=== PATIENT | female | born 1940 | race Caucasian/White ===

== ENCOUNTER 2020-06-12 13:31 | Inpatient (IN) | payer MEDICARE ==
[2020-06-12] MEDS ORDERED: SODIUM CHLORIDE 0.9% 1,000 ML IV ONE (13:58)
[2020-06-12] MEDS: SODIUM CHLORIDE 0.9% 1,000 ML IV SCH ×2 (14:13→22:07)
[2020-06-12 14:22] LABS: Basophils # (A) 0.1 k/uL (0-0.2); Basophils % (A) 1 %; Eosinophils # (A) 0.7 k/uL (0-0.7); Eosinophils % (A) 7 %; HCT 36.5 % (34.0-46.0); HGB 12.1 gm/dL (11.4-16.0); Lymphocytes # (A) 2.6 k/uL (1.0-4.8); Lymphocytes % (A) 30 %; MCH 31.2 pg (25.0-35.0); MCHC 33.2 g/dL (31.0-37.0); MCV 94.1 fL (80.0-100.0); Mean Platelet Volume 7.2; Monocytes # (A) 0.6 k/uL (0-1.0); Monocytes % (A) 6 %; Neutrophils # (A) 4.7 k/uL (1.3-7.7); Neutrophils % (A) 54 %; Platelet Count 311 k/uL (150-450); RBC 3.88 m/uL (3.80-5.40); WBC 8.8 k/uL (3.8-10.6)
[2020-06-12 14:32] LABS: Albumin 4.2 g/dL (3.5-5.0); Calcium 9.7 mg/dL (8.4-10.2); Potassium 4.2 mmol/L (3.5-5.1); Total Bilirubin 0.5 mg/dL (0.2-1.3); Total Protein 6.6 g/dL (6.3-8.2)
[2020-06-12 14:34] LABS: Partial Thromboplastin Time 23.1 sec (22.0-30.0); Prothrombin Time 10.6 sec (9.0-12.0)
--- NOTE | 2020-06-12 14:41 | ED ---
ENT HPI - General Chief complaint: ENT Stated complaint: ENT Time Seen by Provider: 06/12/20 13:37 Source: patient, EMS, RN notes reviewed Mode of arrival: EMS Limitations: no limitations - History of Present Illness Initial comments: This a 80-year-old female presented emergency Department chief complaint of neck mass. Patient was seen by Dr. Jean Baptiste yesterday had biopsy, in office scope. Patient found to have neck mass and was sent in for further evaluation. Patient states that she's been having difficulty swallowing eating and talking over the last 1 month she was a former smoker. Denies any shortness of breath. Patient states she feels dehydrated. Patient denies any history of cancer no headache no dizziness no chest pain patient states she's lost a large amount of weight. - Related Data Allergies Allergy/AdvReac Type Severity Reaction Status Date / Time morphine Allergy Unknown Verified 06/12/20 13:33 Review of Systems ROS Statement: Those systems with pertinent positive or pertinent negative responses have been documented in the HPI. ROS Other: All systems not noted in ROS Statement are negative. Past Medical History Past Medical History: Hypertension History of Any Multi-Drug Resistant Organisms: None Reported Past Surgical History: Ablation, Hysterectomy Past Psychological History: Anxiety Smoking Status: Former smoker Past Alcohol Use History: None Reported Past Drug Use History: None Reported General Exam Limitations: no limitations General appearance: alert, in no apparent distress Head exam: Present: atraumatic, normocephalic, normal inspection Eye exam: Present: normal appearance, PERRL, EOMI. Absent: scleral icterus, conjunctival injection, periorbital swelling ENT exam: Present: mucous membranes dry. Absent: normal oropharynx Neck exam: Present: full ROM, lymphadenopathy (Left). Absent: normal inspection, tenderness, meningismus Respiratory exam: Present: normal lung sounds bilaterally. Absent: respiratory distress, wheezes, rales, rhonchi, stridor Cardiovascular Exam: Present: regular rate, normal rhythm, normal heart sounds. Absent: systolic murmur, diastolic murmur, rubs, gallop, clicks Neurological exam: Present: alert, oriented X3, CN II-XII intact Skin exam: Present: warm, dry, intact, normal color. Absent: rash Course Vital Signs 06/12/20 06/12/20 13:33 15:12 Temperature 98.2 F Pulse Rate 65 50 L Respiratory 18 18 Rate Blood Pressure 141/84 159/67 O2 Sat by Pulse 95 99 Oximetry Medical Decision Making - Medical Decision Making CT reviews evidence of tongue mass, multiple lymph nodes in bilateral throat mass. Patient is dehydrated, having difficulty eating and drinking. Patient will be admitted for further evaluation and treatment. - Lab Data Result diagrams: 06/12/20 14:09 06/12/20 14:09 Lab Results 06/12/20 06/12/20 06/12/20 Range/Units 14:09 14:09 14:09 WBC 8.8 (3.8-10.6) k/uL RBC 3.88 (3.80-5.40) m/uL Hgb 12.1 (11.4-16.0) gm/dL Hct 36.5 (34.0-46.0) % MCV 94.1 (80.0-100.0) fL MCH 31.2 (25.0-35.0) pg MCHC 33.2 (31.0-37.0) g/dL RDW 14.0 (11.5-15.5) % Plt Count 311 (150-450) k/uL MPV 7.2 Neutrophils % 54 % Lymphocytes % 30 % Monocytes % 6 % Eosinophils % 7 % Basophils % 1 % Neutrophils # 4.7 (1.3-7.7) k/uL Lymphocytes # 2.6 (1.0-4.8) k/uL Monocytes # 0.6 (0-1.0) k/uL Eosinophils # 0.7 (0-0.7) k/uL Basophils # 0.1 (0-0.2) k/uL PT 10.6 (9.0-12.0) sec INR 1.0 (<1.2) APTT 23.1 (22.0-30.0) sec Sodium 139 (137-145) mmol/L Potassium 4.2 (3.5-5.1) mmol/L Chloride 102 (98-107) mmol/L Carbon Dioxide 29 (22-30) mmol/L Anion Gap 8 mmol/L BUN 20 H (7-17) mg/dL Creatinine 1.19 H (0.52-1.04) mg/dL Est GFR (CKD-EPI)AfAm 50 (>60 ml/min/1.73 sqM) Est GFR (CKD-EPI)NonAf 44 (>60 ml/min/1.73 sqM) Glucose 111 H (74-99) mg/dL Plasma Lactic Acid Saran (0.7-2.0) mmol/L Calcium 9.7 (8.4-10.2) mg/dL Total Bilirubin 0.5 (0.2-1.3) mg/dL AST 47 H (14-36) U/L ALT 30 (4-34) U/L Alkaline Phosphatase 81 (38-126) U/L Total Protein 6.6 (6.3-8.2) g/dL Albumin 4.2 (3.5-5.0) g/dL 06/12/20 Range/Units 14:09 WBC (3.8-10.6) k/uL RBC (3.80-5.40) m/uL Hgb (11.4-16.0) gm/dL Hct (34.0-46.0) % MCV (80.0-100.0) fL MCH (25.0-35.0) pg MCHC (31.0-37.0) g/dL RDW (11.5-15.5) % Plt Count (150-450) k/uL MPV Neutrophils % % Lymphocytes % % Monocytes % % Eosinophils % % Basophils % % Neutrophils # (1.3-7.7) k/uL Lymphocytes # (1.0-4.8) k/uL Monocytes # (0-1.0) k/uL Eosinophils # (0-0.7) k/uL Basophils # (0-0.2) k/uL PT (9.0-12.0) sec INR (<1.2) APTT (22.0-30.0) sec Sodium (137-145) mmol/L Potassium (3.5-5.1) mmol/L Chloride (98-107) mmol/L Carbon Dioxide (22-30) mmol/L Anion Gap mmol/L BUN (7-17) mg/dL Creatinine (0.52-1.04) mg/dL Est GFR (CKD-EPI)AfAm (>60 ml/min/1.73 sqM) Est GFR (CKD-EPI)NonAf (>60 ml/min/1.73 sqM) Glucose (74-99) mg/dL Plasma Lactic Acid Saran 0.7 (0.7-2.0) mmol/L Calcium (8.4-10.2) mg/dL Total Bilirubin (0.2-1.3) mg/dL AST (14-36) U/L ALT (4-34) U/L Alkaline Phosphatase (38-126) U/L Total Protein (6.3-8.2) g/dL Albumin (3.5-5.0) g/dL Disposition Clinical Impression: Oral mass, Cervical lymphadenopathy, Throat mass, Difficulty eating Disposition: ADMITTED IP TO THIS HOSP Condition: Fair Referrals: David Tucker MD [Primary Care Provider] - 1-2 days
--- NOTE | 2020-06-12 15:09 | CT ---
EXAMINATION TYPE: CT soft tissue neck w con DATE OF EXAM: 06/12/2020 COMPARISON: None HISTORY: Difficulty swallowing. CT DLP: 180 mGycm CONTRAST: CT scan of the neck is performed with IV Contrast, patient injected with 50 mL of Isovue 370. Contrast enhanced CT of the neck was performed from the skull base through the lung apices. AIRWAY: There appears to be soft tissue mass at the base of the tongue on the right measuring 1.8 x 1 .8 cm. Neoplasm is not excluded. Clinical correlation is advised. The remainder of the airway is unre markable. Epiglottis is within normal limits. Vocal cords are within normal limits. SALIVARY GLANDS: The submandibular and parotid glands are free of mass or inflammatory process. THYROID GLAND: No nodules or masses seen. LYMPH NODES: There is a soft tissue mass noted lateral to the internal jugular vein on the left along the undersurface of the left sternocleidomastoid musculature which measures approximately 3.0 x 1.8 x 2.3 cm. This likely reflects adenopathy. Smaller lymph node is seen on the right measuring 1.8 x 1. 0 cm. LUNG APICES: No nodule or mass is seen. OTHER: Vascular structures are patent. No significant degenerative change of the cervical spine. N o abscess seen. IMPRESSION: 1. Probable adenopathy within the neck. 2. Soft tissue fullness at the base of the tongue on the right. Underlying malignancy is not excluded .
[2020-06-12] MEDS ORDERED: ONDANSETRON 4 MG/2 ML VIAL IVP PRN (16:05)
[2020-06-12] MEDS ORDERED: NALOXONE 0.4 MG/ML 1 ML VIAL IV PRN (16:05)
[2020-06-12] MEDS: lisinopriL 20 MG TAB PO SCH (21:51)
[2020-06-12] MEDS: busPIRone HCl 10 MG TAB PO PRN (21:51)
[2020-06-12] MEDS: OLANZapine 5 MG TAB PO SCH (21:52)
[2020-06-12] MEDS: traMADol 50 MG TAB PO PRN (21:52)
[2020-06-13] MEDS: traMADol 50 MG TAB PO PRN ×4 (04:53→22:00)
[2020-06-13] MEDS: SERTRALINE 50 MG TAB PO SCH (08:52)
[2020-06-13] MEDS: ATORVASTATIN 40 MG TAB PO SCH (08:52)
[2020-06-13] MEDS: MULTIVITAMINS, THERA 1 EACH TAB PO SCH (08:53)
[2020-06-13] MEDS: METOPROLOL SUCCINATE (ER) 50 MG TAB.ER.24H PO SCH (08:53)
[2020-06-13] MEDS: PANTOPRAZOLE 40 MG/10 ML VIAL IV SCH (08:53)
--- NOTE | 2020-06-13 13:20 | P.CONS ---
History of Present Illness - Reason for Consult Consult date: 06/13/20 Neck mass Requesting physician: David Tucker - Chief Complaint Neck mass - History of Present Illness Ms. Linder is a very pleasant 80 yo female with history of multiple comorbidities as listed under PMH, here for neck mass. She was being evaluated by ENT for dysphagia for the past month. Seen by ENT and base of tongue mass was seen, biopsied. She presented to ED due to worsening dysphagia and vomiting with PO intake. CT neck showed base of tongue 1.8x1.8cm mass on right as well as right cervical LAD, one measuring 3x1.8x2.3cm lateral to IJV and another one measuring 1.8x1cm. She does have a history of smoking. No SOB however due to her dysphagia she has lost weight over the past month. No alcohol or drug use. No known family history of cancer. Review of Systems All systems: negative Constitutional: Reports as per HPI Past Medical History Past Medical History: Hypertension Additional Past Medical History / Comment(s): Heart Ablation (10 years) History of Any Multi-Drug Resistant Organisms: None Reported Past Surgical History: Ablation, Hysterectomy Past Psychological History: Anxiety Smoking Status: Former smoker Past Alcohol Use History: None Reported Past Drug Use History: None Reported Medications and Allergies Home Medications Medication Instructions Recorded Confirmed Type Acetaminophen [Tylenol Arthritis] 1,300 mg PO Q8H 06/12/20 06/12/20 History Atorvastatin [Lipitor] 40 mg PO DAILY 06/12/20 06/12/20 History Metoprolol Succinate (ER) [Toprol 50 mg PO DAILY 06/12/20 06/12/20 History Xl] Multivit with Calcium,Iron,Min 1 tab PO DAILY 06/12/20 06/12/20 History [Women's Multivitamin] OLANZapine [ZyPREXA] 5 mg PO DAILY 06/12/20 06/12/20 History Sertraline [Zoloft] 50 mg PO DAILY 06/12/20 06/12/20 History busPIRone HCl [Buspar] 10 mg PO TID PRN 06/12/20 06/12/20 History traMADol HCL 50 mg PO QID PRN 06/12/20 06/12/20 History Allergies Allergy/AdvReac Type Severity Reaction Status Date / Time morphine Allergy Unknown Verified 06/12/20 16:01 Physical Exam Vitals: Vital Signs Temp Pulse Pulse Resp BP BP Pulse Ox 06/13/20 04:51 97.8 F 60 14 152/81 93 L 06/12/20 20:00 98.0 F 54 L 16 176/74 06/12/20 18:00 97.9 F 58 L 18 192/87 95 06/12/20 16:36 98.3 F 64 18 172/91 98 06/12/20 15:12 50 L 18 159/67 99 06/12/20 13:33 98.2 F 65 18 141/84 95 Intake and Output 06/12/20 06/13/20 06/13/20 22:59 06:59 14:59 Intake Total 236 Balance 236 Intake: Oral 236 Other: # Voids 3 Weight 50.802 kg Gen: No acute distress. HEENT: Mucosa moist Neck: Supple Lymph: Left [address] palpable, mobile and nontender. Lungs: No respiratory distress Heart: Regular rate Abd: Soft MSK: appropriate strength in all 4 extremities Neuro: Alert and oriented x3 Psych: Appropriate affect Results CBC & Chem 7: 06/12/20 14:09 06/12/20 14:09 Labs: Abnormal Lab Results - Last 24 Hours (Table) 06/12/20 Range/Units 14:09 BUN 20 H (7-17) mg/dL Creatinine 1.19 H (0.52-1.04) mg/dL Glucose 111 H (74-99) mg/dL AST 47 H (14-36) U/L Comments: CT neck reviewed. Right base of tongue mass and right cervical LAD. Assessment and Plan Assessment: 1. Base of tongue mass 2. Renal dysfunction, unknown if acute vs chronic as no baseline Plan: Ms. Linder is a very pleasant 80 yo female with multiple comorbidities as listed under PMH, who is here for neck mass from ENT clinic. She was being evaluated for dysphagia with associated weight loss over the past month and was found to have a right base of tongue mass with cervical LAD on CT. ENT exam with biopsy done, path pending. Will need to await pathology report. In the meantime, pt would benefit from swallow evaluation and possible tube feeding if fails swallow evaluation, hydration and monitoring her Cr. She seems to have some renal dysfunction however unknown baseline and unknown if this is MECCA vs CKD. Rest of labs normal. She would also benefit from systemic work up with CT CAP with contrast or PET scan outpatient (PET scan preferred if pt stable for discharge). Further rec's pending pathology. Discussed with pt and she is agreeable to the plan. All questions answered.
--- NOTE | 2020-06-13 13:53 | HP ---
HISTORY AND PHYSICAL CHIEF COMPLAINT: Difficulty swallowing. HISTORY OF PRESENT ILLNESS: This is the first known admission for this 80-year-old white female. She came into the office recently with some complaints of swelling in the left side of the neck. She had a lesion on the left side of the tongue. She was referred out for evaluation and just underwent a percutaneous biopsy of the left mass several days ago. She came into the emergency room because she was having difficulty eating, talking and swallowing. REVIEW OF SYSTEMS: She has had no headaches, focal neurologic deficits, chest pain, cough, hemoptysis, blood spitting, chest pain, orthopnea, PND, abdominal pain, melena, hematochezia, renal failure, dysuria, frequency, urgency, diabetes, high BP, etc. Past medical history, family history and personal and social histories reveal that she is allergic to MORPHINE and TRAZODONE. She has a history of hyperthyroidism and diabetes. Surgically she has had a hysterectomy, subtotal colectomy, splenectomy and a knee procedure. Personal social history is otherwise noncontributory. She does not smoke and she does not drink. Usual medications includeSertraline 50 mg once a day, lisinopril 20 mg once a day, buspirone 10 mg t.i.d. p.r.n., metoprolol succinate 50 mg once a day and olanzapine 5 mg once a day. PHYSICAL EXAMINATION: Blood pressure is 119/75 with a pulse of 80, respirations of 34 and she is afebrile. In general, she appeared to be slender, in no acute distress. Skin color was normal, skin was warm and dry. Lymph nodes were not enlarged. Head, ears, eyes, nose, mouth and throat revealed a mass on the left side of neck with a Band-Aid. Inside her mouth there was a lesion at the base of the left side of the tongue. She did have some trouble talking. Neck veins are not distended that could be appreciated. Chest is clear to auscultation and percussion. Cardiac exam is normal. The abdomen is soft and nontender. Extremities are normal. Neurologically she is intact. She is admitted to the hospital with diagnoses. 1. Dysarthria. 2. Dysphagia. 3. Left-sided neck mass. 4. 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 PLAN: 1. Bed rest. 2. IV fluids. 3. Oncology consult. 4. Await biopsy results. MMODL / IJN: [id number] /
--- NOTE | 2020-06-13 14:14 | PN ---
PROGRESS NOTE CHIEF COMPLAINT: Difficulty swallowing. HISTORY OF PRESENT ILLNESS: This lady is about the same. She is not having a lot of discomfort. She does have dysarthria. PHYSICAL EXAMINATION: There is swelling at the base of the tongue on the left and there is a hard nodular mass on the left side of the neck. Chest is clear. Cardiac exam is normal. IMPRESSION: 1. 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 2. Dysphagia. 3. Dysarthria. PLAN: Oncology evaluation and await the results of her biopsy. MMODL / IJN: [id number] /
[2020-06-13] MEDS: SODIUM CHLORIDE 0.9% 1,000 ML IV SCH ×2 (16:58→22:06)
[2020-06-13] MEDS: lisinopriL 20 MG TAB PO SCH (22:00)
[2020-06-13] MEDS: busPIRone HCl 10 MG TAB PO PRN (22:00)
[2020-06-13] MEDS: OLANZapine 5 MG TAB PO SCH (22:00)
[2020-06-13] MEDS: ACETAMINOPHEN TAB 325 MG TAB PO PRN (23:40)
[2020-06-14] MEDS: traMADol 50 MG TAB PO PRN ×3 (06:16→21:59)
[2020-06-14] MEDS: SERTRALINE 50 MG TAB PO SCH (08:04)
[2020-06-14] MEDS: PANTOPRAZOLE 40 MG/10 ML VIAL IV SCH (08:04)
[2020-06-14] MEDS: MULTIVITAMINS, THERA 1 EACH TAB PO SCH (08:04)
[2020-06-14] MEDS: ATORVASTATIN 40 MG TAB PO SCH (08:04)
[2020-06-14] MEDS: METOPROLOL SUCCINATE (ER) 50 MG TAB.ER.24H PO SCH (08:04)
[2020-06-14] MEDS: SODIUM CHLORIDE 0.9% 1,000 ML IV SCH ×2 (19:36→22:06)
--- NOTE | 2020-06-14 20:35 | PN ---
PROGRESS NOTE CHIEF COMPLAINT: Dysphagia, CA of the tongue with metastases. HISTORY OF PRESENT ILLNESS: This lady is awake and alert. She can not swallow at all. It looks as though she will require a PEG tube. Biopsy report on the node in the left side of the neck is still pending. PHYSICAL EXAMINATION: She has bilateral cervical adenopathy at this time. She is still having some trouble speaking. Chest is clear. Cardiac exam is normal. Abdomen is soft, nontender. IMPRESSION: 1. 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 2. Dysphagia. PLAN: 1. Await further recommendations once the pathology report is in. 2. PEG tube. 3. Discharge planning. MMODL / IJN: [id number] /
[2020-06-14] MEDS: lisinopriL 20 MG TAB PO SCH (21:59)
[2020-06-14] MEDS: traZODone HCL 50 MG TAB PO SCH (21:59)
[2020-06-14] MEDS: OLANZapine 5 MG TAB PO SCH (22:00)
[2020-06-15] MEDS: ACETAMINOPHEN TAB 325 MG TAB PO PRN ×2 (02:45→15:46)
[2020-06-15] MEDS: busPIRone HCl 10 MG TAB PO PRN (02:45)
[2020-06-15] MEDS: PANTOPRAZOLE 40 MG/10 ML VIAL IV SCH (08:54)
[2020-06-15] MEDS: traMADol 50 MG TAB PO PRN ×2 (08:54→18:12)
[2020-06-15] MEDS: ATORVASTATIN 40 MG TAB PO SCH (08:55)
[2020-06-15] MEDS: MULTIVITAMINS, THERA 1 EACH TAB PO SCH (08:55)
[2020-06-15] MEDS: METOPROLOL SUCCINATE (ER) 50 MG TAB.ER.24H PO SCH (08:55)
[2020-06-15] MEDS: SERTRALINE 50 MG TAB PO SCH (08:55)
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
[2020-06-15 10:26] LABS: Basophils # (A) 0.1 k/uL (0-0.2); Basophils % (A) 1 %; Eosinophils # (A) 0.6 k/uL (0-0.7); Eosinophils % (A) 7 %; HCT 34.2 % (34.0-46.0); HGB 11.5 gm/dL (11.4-16.0); Lymphocytes % (A) 24 %; MCH 31.6 pg (25.0-35.0); MCHC 33.5 g/dL (31.0-37.0); MCV 94.3 fL (80.0-100.0); Mean Platelet Volume 7.5; Monocytes # (A) 0.7 k/uL (0-1.0); Monocytes % (A) 9 %; Neutrophils # (A) 4.7 k/uL (1.3-7.7); Neutrophils % (A) 57 %; Platelet Count 288 k/uL (150-450); RBC 3.63 m/uL (3.80-5.40); RDW 13.9 % (11.5-15.5); WBC 8.2 k/uL (3.8-10.6)
[2020-06-15 10:43] LABS: ALT 21 U/L (4-34); AST 33 U/L (14-36); African American GFR (CKD) 69 (>60 ml/min/1.73 sqM); Albumin 3.4 g/dL (3.5-5.0); Albumin/Globulin Ratio 1.5; Alkaline Phosphatase 104 U/L (38-126); Anion Gap 10 mmol/L; Blood Urea Nitrogen 10 mg/dL (7-17); Calcium 8.9 mg/dL (8.4-10.2); Carbon Dioxide 26 mmol/L (22-30); Chloride 104 mmol/L (98-107); Globulin 2.2 g/dL; Glucose 91 mg/dL (74-99); Non-African American GFR(CKD) 60 (>60 ml/min/1.73 sqM); Sodium 140 mmol/L (137-145); Total Bilirubin 0.8 mg/dL (0.2-1.3); Total Protein 5.6 g/dL (6.3-8.2)
[2020-06-15 11:20] LABS: Potassium 3.3 mmol/L (3.5-5.1)
[2020-06-15] MEDS ORDERED: IV FLUID CONTINUATION 1,000 ML IV ONE ×2 (13:30)
[2020-06-15] MEDS ORDERED: PROPOFOL 10 MG/ML 20 ML VIAL IV ONE (13:35)
[2020-06-15] MEDS ORDERED: MIDAZOLAM 2 MG/2 ML VIAL ONE (13:35)
[2020-06-15] MEDS ORDERED: fentaNYL (PF) 50 MCG/ML 2 ML AMP ONE (13:35)
--- NOTE | 2020-06-15 13:43 | CDI ---
Documentation Clarification Form Date: 06/15/2020 01:35:30 PM From: Shruthi Grant RN, CCDS Admit Date: 06/12/2020 03:46:00 PM Patient Name: Teri Linder Visit Number: [id number] ATTENTION: The Clinical Documentation Specialists (CDI) and [facility] Coding Staff appreciate your assistance in clarifying documentation. Please respond to the clarification below the line at the bottom and electronically sign. The CDI & [facility] Coding staff will review the response and follow-up if needed. Please note: Queries are made part of the Legal Health Record. If you have any questions, please contact the author of this message via ITS. Dr. David Tucker Renal dysfunction, unknown if acute vs chronic as no baseline, was documented in the Oncology Consult and requires further specificity. History/Risk Factors: HTN, Dysphagia, Dysarthria, vomiting x 1 month, possible cancer of tongue Patients baseline BUN/CR/GFR: pt. has no previous lab work at this facility. Clinical Indicators: 06/12 & 06/15 Current BUN: 20/ Cr: 1./.91 GFR: 44/60 06/13 Oncology Consult: "She seems to have some renal dysfunction however unknown baseline and unknown if this is MECCA vs CKD." Treatment: 06/12 1L 0.9% NS IVF Bolus followed by 75 cc/hr. In order to capture the severity of condition, please clarify if the condition signifies: Acute renal failure, Please specify etiology (if known): Cortical Necrosis Medullary Necrosis Tubular Necrosis Acute kidney injury Acute on chronic renal failure CKD Stage 1 GFR >90 CKD Stage 2 GFR 60-89 CKD Stage 3 GFR 30-59 CKD Stage 4 GFR 15-29 CKD Stage 5 GFR <15 Chronic renal failure/Chronic Kidney disease (CKD) please stage (if known): CKD Stage 1 GFR >90 CKD Stage 2 GFR 60-89 CKD Stage 3 GFR 30-59 CKD Stage 4 GFR 15-29 CKD Stage 5 GFR <15 Other, please specify Unable to determine (Last Revision: July 2017) MTDD
--- NOTE | 2020-06-15 13:54 | CDI ---
Documentation Clarification Form Date: 06/15/2020 01:52:18 PM From: Shruthi Grant RN, CCDS Admit Date: 06/12/2020 03:46:00 PM Patient Name: Teri Linder Visit Number: [id number] ATTENTION: The Clinical Documentation Specialists (CDI) and [facility] Coding Staff appreciate your assistance in clarifying documentation. Please respond to the clarification below the line at the bottom and electronically sign. The CDI & [facility] Coding staff will review the response and follow-up if needed. Please note: Queries are made part of the Legal Health Record. If you have any questions, please contact the author of this message via ITS. Dr. David Jacobo loss is documented in a patient with a BMI 18.6 with plans for Peg tube insertion. Please provide clinical significance. History/Risk Factors: Anxiety, former smoker, HTN, tongue mass, dysphagia, left neck mass Clinical Indicators: 06/15 Surgical Consult: "She has had weight loss over the last month. Her voice is also changing and is more hoarse. Computed tomography scan of the neck shows soft tissue fullness at the base of the tongue on the right. Underlying malignancy is not excluded. Surgical consult was placed for PEG tube placement." 06/13 Oncology Consult: "She presented to ED due to worsening dysphagia and vomiting with PO intake. No SOB however due to her dysphagia she has lost weight over the past month. Labs: BUN 10/02 Creatinine 1.19/0.91 Current BMI: 18.6 Insufficient energy intake: Weight Loss: over last year 06/13 Dietary consult: "underweight with moderate clavicle and temporal wasting Per Nursing Assessments: Decreased hand metrology technician strength: mild weakness to all 3 extremities Treatment: Dietary Consult: Completed 06/13 Supplements: Ensure Liquid TID Plans for Peg tube placement for feeding Lab monitoring: As ordered by MD In your professional opinion, can you please clarify if these findings signify one of the following conditions? Moderate Protein-Calorie Malnutrition Severe Protein-Calorie Malnutrition Other condition, please specify Unable to determine (Last Revision: October 2018) MTDD
--- NOTE | 2020-06-15 14:11 | P.OP ---
Date of Procedure: 06/15/20 Procedure(s) Performed: PREOPERATIVE DIAGNOSIS: Malnutrition, dysphagia POSTOPERATIVE DIAGNOSIS: Same PROCEDURE: EGD with PEG tube placement SURGEON: Marcus EBL: Minimal ANESTHESIA: Sedation COMPLICATIONS: None OPERATIVE PROCEDURE: The patient was placed in the supine position on the endoscopy table. The patient was sedated per anesthesia that time. The Olympus gastroscope was inserted into the oropharynx and passed under direct visualization to the region of the duodenum. No obstruction was seen. The pylorus was widely patent. The stomach was carefully inspected. The stomach was fully insufflated with air. The abdominal wall was inspected. The light was seen shining through the abdominal wall in the left upper quadrant. This site was chosen for PEG tube placement. The area was prepped in the usual sterile fashion. This area was then localized with lidocaine. No air was evident when aspirating while advancing the localizing needle into the stomach until the stomach was reached. A small vertical incision was made using the scalpel. The Seldinger needle was advanced into the lumen of the stomach the wire was advanced. The wire was grasped with an endoscopic snare. The wire was pulled through the oropharynx. The catheter was then threaded over the guidewire and the guidewire and catheter were pulled anteriorly until the hub of the PEG tube catheter was seated against the anterior wall the stomach. The circular bolster was applied and tightened down. The endoscope was then readvanced into the stomach. There was no evidence of any bleeding and there was appropriate tightness on the bolster. The catheter was cut appropriately. The dual port feeding adapter was applied. DISPOSITION: Stable to recovery room
--- NOTE | 2020-06-15 15:32 | MISC ---
MISCELLANOUS REPORT QUERY: Regarding renal failure: Unable to determine. MMODL / IJN: [id number] /
--- NOTE | 2020-06-15 15:37 | MISC ---
MISCELLANOUS REPORT QUERY: Unable to determine regarding malnutrition. MMODL / IJN: [id number] /
[2020-06-15] MEDS: hydrALAZINE HCL 25 MG TAB PO SCH ×2 (17:20→21:28)
--- NOTE | 2020-06-15 18:46 | PN ---
PROGRESS NOTE CHIEF COMPLAINT: Dysphagia and neck mass. HISTORY OF PRESENT ILLNESS: This lady is unchanged. We will refer her to Surgery for a PEG tube. We still await results of her neck biopsy. Her blood pressure has gone up today. PHYSICAL EXAMINATION: Chest is clear. Cardiac exam is normal. Abdomen is soft, nontender. Speech and neck exams are unchanged. IMPRESSION: 1. 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 2. Hypertension. PLAN: 1. Surgery referral for PEG tube. 2. Give her something different for her insomnia. 3. Await biopsy results. MMODL / IJN: [id number] /
[2020-06-15] MEDS: lisinopriL 20 MG TAB PO SCH (21:27)
[2020-06-15] MEDS: OLANZapine 5 MG TAB PO SCH (21:28)
[2020-06-15] MEDS: traZODone HCL 50 MG TAB PO SCH (21:28)
[2020-06-16] MEDS: traMADol 50 MG TAB PO PRN ×4 (01:25→21:00)
[2020-06-16] MEDS: SODIUM CHLORIDE 0.9% 1,000 ML IV SCH ×2 (01:25→15:54)
[2020-06-16] MEDS: PANTOPRAZOLE 40 MG/10 ML VIAL IV SCH (08:00)
[2020-06-16] MEDS: METOPROLOL SUCCINATE (ER) 50 MG TAB.ER.24H PO SCH (08:02)
[2020-06-16] MEDS: SERTRALINE 50 MG TAB PO SCH (08:02)
[2020-06-16] MEDS: hydrALAZINE HCL 25 MG TAB PO SCH ×3 (08:02→20:59)
[2020-06-16] MEDS: MULTIVITAMINS, THERA 1 EACH TAB PO SCH (08:02)
[2020-06-16] MEDS: ATORVASTATIN 40 MG TAB PO SCH (08:03)
--- NOTE | 2020-06-16 18:02 | P.PN ---
Subjective Progress Note Date: 06/16/20 Principal diagnosis: Malnutrition Patient doing well today. Complaining of mild pain at the PEG tube site. No nausea or vomiting. Tube feeds have begun at 20 mL per hour and tolerating so far. Objective - Vital Signs Vital signs: Vital Signs Temp 98.1 F 06/16/20 13:00 Pulse 71 06/16/20 13:46 Resp 22 06/16/20 13:46 BP 131/70 06/16/20 13:00 Pulse Ox 96 06/16/20 13:00 Intake & Output 06/15/20 06/16/20 06/16/20 18:59 06:59 18:59 Intake Total 1195 900 Balance 1195 900 Weight 47.9 kg Intake: IV 250 Intake, IV Titration 825 900 Amount Sodium Chloride 0.9% 1, 825 900 000 ml @ 75 mls/hr IV . [id number] [facility] Rx#:[id number] Oral 120 Other: Voiding Method Toilet # Voids 2 1 1 - Exam Abdomen: Soft, nondistended, mild tenderness at PEG tube site - Labs CBC & Chem 7: 06/15/20 10:12 06/15/20 10:12 Assessment and Plan (1) Malnutrition Narrative/Plan: Patient is doing fairly well at this time. Continue gradually advancing tube feeds as tolerated. Will follow. Current Visit: Yes Status: Acute Code(s): E46 - UNSPECIFIED PROTEIN-CALORIE MALNUTRITION SNOMED Code(s): 36288760
--- NOTE | 2020-06-16 18:50 | PN ---
PROGRESS NOTE CHIEF COMPLAINT: Mass in the neck and dysphagia. HISTORY OF PRESENT ILLNESS: This lady is fairly stable. PEG tube was placed yesterday. Apparently she does not have a place to go, and Vineyard Worker is starting to work on a discharge plan with a correction in mind. PHYSICAL EXAMINATION: Her chest is clear. Cardiac exam is normal. Abdomen is soft, nontender. IMPRESSION: 1. Carcinoma of the base of the tongue. 2. Dysphagia. 3. Status post PEG tube placement. PLAN: Start to use PEG tube for feedings and work on correction placement. MMODL / IJN: [id number] /
[2020-06-16] MEDS: ACETAMINOPHEN TAB 325 MG TAB PO PRN (19:07)
[2020-06-16] MEDS: traZODone HCL 50 MG TAB PO SCH (20:59)
[2020-06-16] MEDS: OLANZapine 5 MG TAB PO SCH (21:00)
[2020-06-16] MEDS: lisinopriL 20 MG TAB PO SCH (21:00)
[2020-06-16] MEDS: ZOLPIDEM 5 MG TAB PO PRN (21:09)
[2020-06-17] MEDS: SODIUM CHLORIDE 0.9% 1,000 ML IV SCH ×2 (06:33→15:24)
[2020-06-17] MEDS: traMADol 50 MG TAB PO PRN ×3 (07:13→21:06)
[2020-06-17] MEDS: PANTOPRAZOLE 40 MG/10 ML VIAL IV SCH (08:38)
[2020-06-17] MEDS: ACETAMINOPHEN TAB 325 MG TAB PO PRN ×2 (08:41→18:12)
[2020-06-17] MEDS: METOPROLOL SUCCINATE (ER) 50 MG TAB.ER.24H PO SCH ×2 (09:18→09:55)
[2020-06-17] MEDS: MULTIVITAMINS, THERA 1 EACH TAB PO SCH (09:20)
[2020-06-17] MEDS: SERTRALINE 50 MG TAB PO SCH (09:20)
[2020-06-17] MEDS: ATORVASTATIN 40 MG TAB PO SCH (09:21)
[2020-06-17] MEDS: hydrALAZINE HCL 25 MG TAB PO SCH ×3 (09:30→21:06)
[2020-06-17 10:14] LABS: African American GFR (CKD) 66 (>60 ml/min/1.73 sqM); Anion Gap 8 mmol/L; Blood Urea Nitrogen 21 mg/dL (7-17); Calcium 8.7 mg/dL (8.4-10.2); Carbon Dioxide 26 mmol/L (22-30); Chloride 104 mmol/L (98-107); Glucose 167 mg/dL (74-99); Non-African American GFR(CKD) 58 (>60 ml/min/1.73 sqM); Potassium 3.2 mmol/L (3.5-5.1); Sodium 138 mmol/L (137-145)
--- NOTE | 2020-06-17 11:07 | P.PN ---
<Aline Garcia - Last Filed: 06/17/20 10:56> Subjective Progress Note Date: 06/17/20 CHIEF COMPLAINT: Dysphagia, malnutrition HISTORY OF PRESENT ILLNESS: Patient is status post PEG tube placement. She does complain of pain around the PEG tube site. She reports that the pain is slightly worse than yesterday and not controlled with the Tylenol and Ultram. She denies any nausea or vomiting. She is tolerating the tube feedings. Her tube feeds are at goal at 30 mL per hour. She denies any bowel movement. She is passing gas. She is afebrile. Potassium 3.2 creatinine 0.95 BUN 21 PHYSICAL EXAM: VITAL SIGNS: Reviewed. GENERAL: Well-developed in no acute distress. HEENT: No sclera icterus. Extraocular movements grossly intact. Moist buccal mucosa. Head is atraumatic, normocephalic. ABDOMEN: Soft. Nondistended. Tenderness noted around PEG tube site. PEG tube site clean dry and intact. NEUROLOGIC: Alert and oriented. Cranial nerves II through XII grossly intact. ASSESSMENT: 1. Moderate protein calorie malnutrition status post PEG tube placement 2. Dysphagia 3. Tongue mass PLAN: -Continue tube feedings -Continue pain control -Replace potassium Physician Dealer Accounts Investigator note has been reviewed by physician. Signing provider agrees with the documented findings, assessment, and plan of care. Objective - Vital Signs Vital signs: Vital Signs Temp 98.1 F 06/17/20 07:19 Pulse 68 06/17/20 08:14 Resp 18 06/17/20 08:14 BP 122/67 06/17/20 07:19 Pulse Ox 92 L 06/17/20 07:19 Intake & Output 06/16/20 06/17/20 06/17/20 18:59 06:59 18:59 Intake Total 60 Balance 60 Weight 47.9 kg 50 kg Intake: Tube Feeding 60 Other: Voiding Method Toilet Toilet Toilet # Voids 1 - Labs CBC & Chem 7: 06/15/20 10:12 06/17/20 09:22 Labs: Abnormal Lab Results - Last 24 Hours (Table) 06/17/20 Range/Units 09:22 Potassium 3.2 L (3.5-5.1) mmol/L BUN 21 H (7-17) mg/dL Glucose 167 H (74-99) mg/dL <Devang Velazquez - Last Filed: 06/17/20 12:25> Subjective As above. Patient doing better. Mild discomfort. Bolster loosened. Continue analgesics. Objective - Vital Signs Vital signs: Vital Signs Temp 98.1 F 06/17/20 07:19 Pulse 68 06/17/20 08:14 Resp 18 06/17/20 08:14 BP 122/67 06/17/20 07:19 Pulse Ox 92 L 06/17/20 07:19 Intake & Output 06/16/20 06/17/20 06/17/20 18:59 06:59 18:59 Intake Total 60 Balance 60 Weight 47.9 kg 50 kg Intake: Tube Feeding 60 Other: Voiding Method Toilet Toilet Toilet # Voids 1 - Labs CBC & Chem 7: 06/15/20 10:12 06/17/20 09:22 Labs: Abnormal Lab Results - Last 24 Hours (Table) 06/17/20 06/17/20 Range/Units 09:22 09:22 Potassium 3.2 L (3.5-5.1) mmol/L BUN 21 H (7-17) mg/dL Glucose 167 H (74-99) mg/dL Magnesium 1.4 L (1.6-2.3) mg/dL Assessment and Plan (1) Malnutrition Current Visit: Yes Status: Acute Code(s): E46 - UNSPECIFIED PROTEIN-CALORIE MALNUTRITION SNOMED Code(s): 75201322
[2020-06-17] MEDS ORDERED: Magnesium Replacement Protocol 1 EACH MISC MISCELLANE PRN (11:46)
--- NOTE | 2020-06-17 12:04 | PN ---
PROGRESS NOTE DATE OF SERVICE: 06/17/2020 CHIEF COMPLAINT: CA of the tongue. HISTORY OF PRESENT ILLNESS: This lady is doing fairly well, but she is having a little discomfort in the PEG tube site. Discharge planning is being investigated for senior living placement. PHYSICAL EXAMINATION: She is awake and alert. Vital signs are normal. Chest is clear. Cardiac exam is normal. Abdomen is soft and nontender. PEG tube site looks good. She has no significant tenderness in the area. IMPRESSION: 1. Metastatic carcinoma of the tongue. 2. Irritation in the PEG tube site and left upper quadrant. PLAN: Await discharge arrangements. MMODL / IJN: [id number] /
[2020-06-17] MEDS: MAGNESIUM SULFATE-D5W PMX 1 GM in DEXTROSE/WATER 1 100ML.BAG IVPB SCH ×3 (12:24→15:22)
[2020-06-17] MEDS: POTASSIUM CHLORIDE 10 MEQ in WATER FOR INJECTION 1 100ML.BAG IVPB SCH ×4 (12:25→18:14)
[2020-06-17] MEDS: HYDROcodone/APAP 15 ML SOLUTION PO PRN ×2 (13:38→20:20)
[2020-06-17] MEDS: traZODone HCL 50 MG TAB PO SCH (21:06)
[2020-06-17] MEDS: ZOLPIDEM 5 MG TAB PO PRN (21:06)
[2020-06-17] MEDS: lisinopriL 20 MG TAB PO SCH (21:06)
[2020-06-17] MEDS: OLANZapine 5 MG TAB PO SCH (21:47)
[2020-06-18] MEDS: SODIUM CHLORIDE 0.9% 1,000 ML IV SCH ×2 (04:56→15:00)
[2020-06-18] MEDS: traMADol 50 MG TAB PO PRN ×2 (04:56→19:30)
[2020-06-18] MEDS: HYDROcodone/APAP 15 ML SOLUTION PO PRN ×2 (07:29→16:29)
[2020-06-18] MEDS: MULTIVITAMINS, THERA 1 EACH TAB PO SCH (09:37)
[2020-06-18] MEDS: hydrALAZINE HCL 25 MG TAB PO SCH ×3 (09:37→21:42)
[2020-06-18] MEDS: SERTRALINE 50 MG TAB PO SCH (09:37)
[2020-06-18] MEDS: METOPROLOL SUCCINATE (ER) 50 MG TAB.ER.24H PO SCH (09:38)
[2020-06-18] MEDS: HYDROmorphone 0.5 MG/0.5 ML SYRINGE IVP PRN ×4 (09:39→21:43)
[2020-06-18] MEDS: ATORVASTATIN 40 MG TAB PO SCH (09:40)
[2020-06-18] MEDS: ACETAMINOPHEN TAB 325 MG TAB PO PRN (09:40)
[2020-06-18] MEDS: PANTOPRAZOLE 40 MG/10 ML VIAL IV SCH (10:30)
--- NOTE | 2020-06-18 10:59 | P.PN ---
<Aline Garcia - Last Filed: 06/18/20 10:53> Subjective Progress Note Date: 06/18/20 CHIEF COMPLAINT: Dysphagia, malnutrition HISTORY OF PRESENT ILLNESS: Patient is status post PEG tube placement. She does complain of pain around the PEG tube site. She reports the pain is the same as yesterday even after the bolster of the PEG tube was loosened. She is tolerating tube feedings. No residual. She is at goal with her tube is at 30 mL per hour. She denies any nausea vomiting. She is passing gas. She is afebrile. Magnesium and potassium were replaced yesterday. BMP and magnesium are pending for today PHYSICAL EXAM: VITAL SIGNS: Reviewed. GENERAL: Well-developed in no acute distress. HEENT: No sclera icterus. Extraocular movements grossly intact. Moist buccal mucosa. Head is atraumatic, normocephalic. ABDOMEN: Soft. Nondistended. Tenderness noted around PEG tube site. PEG tube site clean dry and intact. NEUROLOGIC: Alert and oriented. Cranial nerves II through XII grossly intact. ASSESSMENT: 1. Moderate protein calorie malnutrition status post PEG tube placement 2. Dysphagia 3. Tongue mass PLAN: -Continue tube feedings -Work on pain control -Add Dilaudid 0.5 mg every 3 hours as needed for pain Physician Sleeve Turner note has been reviewed by physician. Signing provider agrees with the documented findings, assessment, and plan of care. Objective - Vital Signs Vital signs: Vital Signs Temp 98.2 F 06/18/20 10:09 Pulse 88 06/18/20 10:09 Resp 17 06/18/20 10:09 BP 158/79 06/18/20 10:09 Pulse Ox 90 L 06/18/20 05:00 Intake & Output 06/17/20 06/18/20 06/18/20 18:59 06:59 18:59 Intake Total 60 240 Balance 60 240 Weight 54 kg Intake: Tube Feeding 60 240 Other: Voiding Method Toilet Toilet Toilet - Labs CBC & Chem 7: 06/15/20 10:12 06/17/20 09:22 Labs: Abnormal Lab Results - Last 24 Hours (Table) 06/17/20 Range/Units 09:22 Magnesium 1.4 L (1.6-2.3) mg/dL <Devang Velazquez - Last Filed: 06/18/20 13:38> Subjective As above. Patient tolerating tube feeds at 30 mL per hour. Still having pain at the surgical site. On exam there is no significant erythema. Only mild tenderness. No swelling. Bolster loosened slightly once again. Will empirically start Zosyn at this point. Check CBC tomorrow. Objective - Vital Signs Vital signs: Vital Signs Temp 98.2 F 06/18/20 10:09 Pulse 88 06/18/20 10:16 Resp 88 H 06/18/20 10:16 BP 158/79 06/18/20 10:09 Pulse Ox 90 L 06/18/20 05:00 Intake & Output 06/17/20 06/18/20 06/18/20 18:59 06:59 18:59 Intake Total 60 240 Balance 60 240 Weight 54 kg Intake: Tube Feeding 60 240 Other: Voiding Method Toilet Toilet Toilet - Labs CBC & Chem 7: 06/15/20 10:12 06/18/20 06:20 Labs: Abnormal Lab Results - Last 24 Hours (Table) 06/18/20 Range/Units 06:20 BUN/Creatinine Ratio 25.00 H (12.00-20.00) Ratio Calcium 8.2 L (8.7-10.3) mg/dL Assessment and Plan (1) Malnutrition Current Visit: Yes Status: Acute Code(s): E46 - UNSPECIFIED PROTEIN-CALORIE MALNUTRITION SNOMED Code(s): 62809190
[2020-06-18 11:36] LABS: African American GFR (CKD) 81.3 (60.0-200.0); Anion Gap 5.9 mmol/L (4.00-12.00); Calcium 8.2 mg/dL (8.7-10.3); Carbon Dioxide 26.1 mmol/L (21.6-31.8); Magnesium 1.8 mg/dL (1.5-2.4); Non-African American GFR(CKD) 70.1 (60.0-200.0); Potassium 3.8 mmol/L (3.5-5.5)
[2020-06-18] MEDS ORDERED: MAGNESIUM CITRATE 296 ML BOTTLE PO ONE (11:36)
--- NOTE | 2020-06-18 15:56 | P.PN ---
Subjective Progress Note Date: 06/18/20 Objective - Vital Signs Vital signs: Vital Signs Temp 98.1 F 06/18/20 14:02 Pulse 75 06/18/20 14:02 Resp 17 06/18/20 14:02 BP 145/80 06/18/20 14:02 Pulse Ox 91 L 06/18/20 14:02 Intake & Output 06/17/20 06/18/20 06/18/20 18:59 06:59 18:59 Intake Total 60 240 Balance 60 240 Weight 54 kg 54 kg Intake: Tube Feeding 60 240 Other: Voiding Method Toilet Toilet Toilet - Exam Gen: No acute distress. HEENT: Mucosa moist Neck: Supple Lymph: Left [address] palpable, mobile and nontender. Lungs: No respiratory distress Heart: Regular rate Abd: Soft MSK: appropriate strength in all 4 extremities Neuro: Alert and oriented x3 Psych: Appropriate affect - Labs CBC & Chem 7: 06/15/20 10:12 06/18/20 06:20 Labs: Abnormal Lab Results - Last 24 Hours (Table) 06/18/20 Range/Units 06:20 BUN/Creatinine Ratio 25.00 H (12.00-20.00) Ratio Calcium 8.2 L (8.7-10.3) mg/dL Assessment and Plan Plan: Comments: CT neck reviewed. Right base of tongue mass and right cervical LAD. Assessment and Plan Assessment: 1. Base of tongue mass 2. Renal dysfunction, unknown if acute vs chronic as no baseline Plan: Neck Mass: Still awaiting path from ENT clinic. S he was being evaluated for dysphagia with associated weight loss over the past month and was found to have a right base of tongue mass with cervical LAD on CT. - have requested path from Dr. Macedo office Creatinine continues to improve will plan for staging CTs as well Physician Attest: I have completed full history and physical and agree with above dictation, dictated as a scribe.
--- NOTE | 2020-06-18 15:58 | P.PN ---
Subjective Progress Note Date: 06/18/20 Principal diagnosis: Neck mass She is status post peg tube and creatinine has improved. Still awaiting path, will obtain Staging CTs contrast administered via PEG Objective - Vital Signs Vital signs: Vital Signs Temp 98.1 F 06/18/20 14:02 Pulse 75 06/18/20 14:02 Resp 17 06/18/20 14:02 BP 145/80 06/18/20 14:02 Pulse Ox 91 L 06/18/20 14:02 Intake & Output 06/17/20 06/18/20 06/18/20 18:59 06:59 18:59 Intake Total 60 240 Balance 60 240 Weight 54 kg 54 kg Intake: Tube Feeding 60 240 Other: Voiding Method Toilet Toilet Toilet - Exam Gen: No acute distress. HEENT: Mucosa moist Neck: Supple Lymph: Left [address] palpable, mobile and nontender. Lungs: No respiratory distress Heart: Regular rate Abd: Soft MSK: appropriate strength in all 4 extremities Neuro: Alert and oriented x3 Psych: Appropriate affect - Labs CBC & Chem 7: 06/15/20 10:12 06/18/20 06:20 Labs: Abnormal Lab Results - Last 24 Hours (Table) 06/18/20 Range/Units 06:20 BUN/Creatinine Ratio 25.00 H (12.00-20.00) Ratio Calcium 8.2 L (8.7-10.3) mg/dL Assessment and Plan Plan: Comments: CT neck reviewed. Right base of tongue mass and right cervical LAD. Assessment and Plan Assessment: 1. Base of tongue mass 2. Renal dysfunction, unknown if acute vs chronic as no baseline Plan: Neck Mass: Still awaiting path from ENT clinic. S he was being evaluated for dysphagia with associated weight loss over the past month and was found to have a right base of tongue mass with cervical LAD on CT. - have requested path from Dr. Macedo office Creatinine continues to improve and with Peg tube placed will order staging CTs Chest, Abdomen and pelvis and can administer through peg.
[2020-06-18] MEDS: IOPAMIDOL CONTRAST (ORAL USE) VIAL PO PRN ×2 (16:29→17:20)
[2020-06-18] MEDS: PIPERACILLIN-TAZOBACTAM 3.375 GM in SODIUM CHLORIDE 0.9% 100 ML IVPB SCH ×2 (16:31→23:57)
--- NOTE | 2020-06-18 18:04 | PN ---
PROGRESS NOTE DATE OF SERVICE: 06/18/2020 CHIEF COMPLAINT: Metastatic carcinoma of the tongue. HISTORY OF PRESENT ILLNESS: This lady is doing fairly well and is fairly comfortable. Apparently there is a bed available at the longterm, but she has not been seen by Oncology yet. PHYSICAL EXAMINATION: Her chest is clear. Cardiac exam is normal. The abdomen is soft, nontender. IMPRESSION: 1. Carcinoma of the tongue with metastases. 2. Dysphagia. PLAN: Continue tube feedings and await further evaluation. She will be seen by Oncology and a treatment plan outlined, after which she can go to the longterm. MMODL / IJN: [id number] /
--- NOTE | 2020-06-18 20:27 | CT ---
EXAMINATION TYPE: CT ChestAbdPelvis w con DATE OF EXAM: 06/18/2020 COMPARISON: None available. HISTORY: Initial staging. CT DLP: 554.2 mGycm Automated exposure control for dose reduction was used. CONTRAST: CT scan of the chest, abdomen and pelvis is performed with Oral Contrast and with IV Contrast, patien t injected with 100ml mL of Isovue 300. FINDINGS: LUNGS: There are small bilateral pleural effusions with adjacent atelectasis. No significant infiltra te, suspicious nodule or pneumothorax. There is moderate centrilobular emphysema. MEDIASTINUM: There are no greater than 1 cm hilar or mediastinal lymph nodes. No pericardial effusi on is seen. There is moderate thoracic aorta and mild coronary atherosclerotic disease. OTHER: No additional significant abnormality is seen. LIVER/GB: No significant abnormality is appreciated. PANCREAS: No significant abnormality is seen. SPLEEN: No significant abnormality is seen. ADRENALS: No significant abnormality is seen. KIDNEYS: Mild bilateral renal pelvic ectasia. No significant nephrolithiasis. BOWEL: There is demonstration of a PEG tube. There is small free air in the dependent upper abdomen. No bowel obstruction or significant free fluid. REPRODUCTIVE ORGANS: No gross abnormality seen. LYMPH NODES: No greater than 1 cm abdominal or pelvic lymph nodes are appreciated. OSSEOUS STRUCTURES: No acute abnormality is seen. Moderate lumbar spondylosis with mild anterolisthes is of L3 on L4. OTHER: 3.9 cm linear radiodense structure in the right retroperitoneum. Additional smaller 0.6 cm sim ilar focus in the right lower quadrant adjacent to the bowel loops. Moderate aortoiliac atherosclerot ic disease. Bilateral breast implants with capsular calcifications seen. IMPRESSION: Small pneumoperitoneum. PEG tube is noted. Correlate for recent instrumentation as possible etiology. Otherwise perforated viscus cannot be excluded. 3.9 cm linear radiodense structure in the right peritoneum. There is note of pigtail and concerning f or retained tube. Additional smaller focus in the right lower quadrant, questionable for additional r etained tube. Small bilateral pleural effusions with mild atelectasis. Otherwise no acute abnormality or evidence for metastatic disease in the chest, abdomen or pelvis. Findings were reported to patient's nurse by me at time of dictation.
[2020-06-18] MEDS: lisinopriL 20 MG TAB PO SCH (21:43)
[2020-06-18] MEDS: traZODone HCL 50 MG TAB PO SCH (21:43)
[2020-06-18] MEDS: OLANZapine 5 MG TAB PO SCH (21:43)
[2020-06-18 23:17] LABS: Basophils # (A) 0.06 X 10*3/uL (0.00-0.10); Basophils % (A) 0.5 %; Eosinophils % (A) 3.4 %; HGB 10.5 g/dL (12.0-15.0); Lymphocytes # (A) 2.54 X 10*3/uL (0.90-5.00); Lymphocytes % (A) 21.9 %; MCH 30.6 pg (27.0-32.0); MCHC 31.8 g/dL (32.0-37.0); MCV 96.2 fL (80.0-97.0); Mean Platelet Volume 10.5 fL (9.5-12.2); Monocytes # (A) 1.11 X 10*3/uL (0.20-1.00); Monocytes % (A) 9.6 %; Neutrophils # (A) 7.46 X 10*3/uL (1.80-7.70); Neutrophils % (A) 64.3 %; Platelet Count 313 X 10*3/uL (140-440); RBC 3.43 X 10*6/uL (4.10-5.20); RDW 14.9 % (11.5-14.5); WBC 11.61 X 10*3/uL (4.50-10.00)
[2020-06-19] MEDS: HYDROmorphone 0.5 MG/0.5 ML SYRINGE IVP PRN ×4 (05:13→22:02)
[2020-06-19] MEDS: SODIUM CHLORIDE 0.9% 1,000 ML IV SCH ×2 (05:13→12:10)
[2020-06-19] MEDS: ATORVASTATIN 40 MG TAB PO SCH (08:13)
[2020-06-19] MEDS: METOPROLOL SUCCINATE (ER) 50 MG TAB.ER.24H PO SCH (08:14)
[2020-06-19] MEDS: hydrALAZINE HCL 25 MG TAB PO SCH ×2 (08:14→17:01)
[2020-06-19] MEDS: SERTRALINE 50 MG TAB PO SCH (08:14)
[2020-06-19] MEDS: MULTIVITAMINS, THERA 1 EACH TAB PO SCH (08:14)
[2020-06-19] MEDS: PANTOPRAZOLE 40 MG/10 ML VIAL IV SCH (08:18)
[2020-06-19] MEDS: PIPERACILLIN-TAZOBACTAM 3.375 GM in SODIUM CHLORIDE 0.9% 100 ML IVPB SCH ×2 (08:18→17:01)
[2020-06-19 09:33] LABS: Basophils # (A) 0.06 X 10*3/uL (0.00-0.10); Basophils % (A) 0.4 %; Eosinophils # (A) 0.52 X 10*3/uL (0.04-0.35); Eosinophils % (A) 3.6 %; HCT 33.4 % (37.2-46.3); HGB 10.7 g/dL (12.0-15.0); Lymphocytes # (A) 2.77 X 10*3/uL (0.90-5.00); Lymphocytes % (A) 19.4 %; MCH 30.6 pg (27.0-32.0); MCV 95.4 fL (80.0-97.0); Mean Platelet Volume 10.4 fL (9.5-12.2); Monocytes % (A) 10.5 %; Neutrophils # (A) 9.38 X 10*3/uL (1.80-7.70); Neutrophils % (A) 65.7 %; Platelet Count 334 X 10*3/uL (140-440); WBC 14.29 X 10*3/uL (4.50-10.00)
--- NOTE | 2020-06-19 09:59 | P.PN ---
Subjective Progress Note Date: 06/19/20 Principal diagnosis: Malnutrition Patient says her pain at the PEG site is less. Only when she moves. Yesterday's CAT scan shows a small amount of pneumoperitoneum which is expected after the recent PEG tube placement. Unusual linear density in the right paraspinal region from previous intervention. PEG tube was placed to drainage last night. Small amount of blood in the container today. Still no stools. Hemoglobin stable at 10.7. White blood cell count elevated at 14. She is afebrile. Objective - Vital Signs Vital signs: Vital Signs Temp 97.8 F 06/19/20 07:18 Pulse 92 06/19/20 07:18 Resp 17 06/19/20 07:18 BP 170/74 06/19/20 07:18 Pulse Ox 93 L 06/19/20 08:54 Intake & Output 06/18/20 06/19/20 06/19/20 18:59 06:59 18:59 Intake Total 890 Output Total 25 Balance 865 Weight 54 kg 53.6 kg Intake: Intake, IV Titration 800 Amount Piperacillin-Tazobactam 3 200 .375 gm In Sodium Chloride 0.9% 100 ml @ 25 mls/hr IVPB Q8HR [facility] Rx# :[id number] Sodium Chloride 0.9% 1, 600 000 ml @ 75 mls/hr IV . [id number] [facility] Rx#:[id number] Tube Feeding 90 Output: Drainage 25 Abdomen 25 Other: Voiding Method Bedside Commode Bedside Commode # Voids 1 2 - Exam Abdomen: Soft, nondistended, mild tenderness at PEG tube site, no erythema, bolster appropriately tight - Labs CBC & Chem 7: 06/19/20 06:13 06/18/20 06:20 Labs: Abnormal Lab Results - Last 24 Hours (Table) 06/18/20 06/18/20 06/19/20 Range/Units 06:20 16:43 06:13 WBC 11.61 H 14.29 H (4.50-10.00) X 10*3/uL RBC 3.43 L 3.50 L (4.10-5.20) X 10*6/uL Hgb 10.5 L 10.7 L (12.0-15.0) g/dL Hct 33.0 L 33.4 L (37.2-46.3) % MCHC 31.8 L (32.0-37.0) g/dL RDW 14.9 H 15.0 H (11.5-14.5) % Immature Gran # 0.06 H (0.00-0.04) X 10*3/uL Neutrophils # 9.38 H (1.80-7.70) X 10*3/uL Monocytes # 1.11 H 1.50 H (0.20-1.00) X 10*3/uL Eosinophils # 0.40 H 0.52 H (0.04-0.35) X 10*3/uL BUN/Creatinine Ratio 25.00 H (12.00-20.00) Ratio Calcium 8.2 L (8.7-10.3) mg/dL Assessment and Plan (1) Malnutrition Narrative/Plan: CAT scan films reviewed. Resume tube feeds. We'll follow. Current Visit: Yes Status: Acute Code(s): E46 - UNSPECIFIED PROTEIN-CALORIE MALNUTRITION SNOMED Code(s): 09830858
[2020-06-19] MEDS ORDERED: MAGNESIUM CITRATE 296 ML BOTTLE PO ONE (12:11)
--- NOTE | 2020-06-19 16:02 | P.PN ---
Subjective Progress Note Date: 06/19/20 Principal diagnosis: Neck mass She is status post left neck FNA which resulted with atypical squamous cells, cannot exclude neoplasm. Re-biopsy will need to be performed. Objective - Vital Signs Vital signs: Vital Signs Temp 98.4 F 06/19/20 13:59 Pulse 80 06/19/20 13:59 Resp 17 06/19/20 13:59 BP 173/80 06/19/20 13:59 Pulse Ox 93 L 06/19/20 08:54 Intake & Output 06/18/20 06/19/20 06/19/20 18:59 06:59 18:59 Intake Total 890 Output Total 25 Balance 865 Weight 54 kg 53.6 kg Intake: Intake, IV Titration 800 Amount Piperacillin-Tazobactam 3 200 .375 gm In Sodium Chloride 0.9% 100 ml @ 25 mls/hr IVPB Q8HR [facility] Rx# :[id number] Sodium Chloride 0.9% 1, 600 000 ml @ 75 mls/hr IV . [id number] [facility] Rx#:[id number] Tube Feeding 90 Output: Drainage 25 Abdomen 25 Other: Voiding Method Bedside Commode Toilet # Voids 1 2 - Exam Gen: No acute distress. HEENT: Mucosa moist Neck: Supple Lymph: Left [address] palpable, mobile and nontender. Lungs: No respiratory distress Heart: Regular rate Abd: Soft MSK: appropriate strength in all 4 extremities Neuro: Alert and oriented x3 Psych: Appropriate affect - Labs CBC & Chem 7: 06/19/20 06:13 06/18/20 06:20 Labs: Abnormal Lab Results - Last 24 Hours (Table) 06/18/20 06/19/20 Range/Units 16:43 06:13 WBC 11.61 H 14.29 H (4.50-10.00) X 10*3/uL RBC 3.43 L 3.50 L (4.10-5.20) X 10*6/uL Hgb 10.5 L 10.7 L (12.0-15.0) g/dL Hct 33.0 L 33.4 L (37.2-46.3) % MCHC 31.8 L (32.0-37.0) g/dL RDW 14.9 H 15.0 H (11.5-14.5) % Immature Gran # 0.06 H (0.00-0.04) X 10*3/uL Neutrophils # 9.38 H (1.80-7.70) X 10*3/uL Monocytes # 1.11 H 1.50 H (0.20-1.00) X 10*3/uL Eosinophils # 0.40 H 0.52 H (0.04-0.35) X 10*3/uL Assessment and Plan Plan: Comments: CT neck reviewed. Right base of tongue mass and right cervical LAD. Assessment and Plan Assessment: 1. Base of tongue mass 2. Renal dysfunction, unknown if acute vs chronic as no baseline Plan: Neck Mass: Biopsy on 06/12/20 - Non-diagnostic and a repeat tissue biopsy will be required.Since the mass is unable to be palpated she will need to return to ENT for this. PLease set up this biopsy prior to discharge since she will likely require rehab in the interim. She will also need PET scan as outpatient for adenopathy on CTs. Creatinine continues to improve and with Peg tube placed will order staging CTs Chest, Abdomen and pelvis and can administer through peg. Physician Attest: I have completed the full history and physical and agree with above dictation, dictated as a scribe.
--- NOTE | 2020-06-19 16:44 | P.CONS ---
History of Present Illness - Reason for Consult Consult date: 06/19/20 new head/neck cancer Requesting physician: Vasquez Larkin - Chief Complaint unable to eat, debility - History of Present Illness The patient is a 80-year-old female with a recent history of inability to eat secondary to food getting stuck in the back of her throat and voice changes. Her initial workup is highly suspicious for a base of tongue cancer with bilateral cervical adenopathy. The patient was undergoing workup by Dr. Moore as an outpatient and underwent FNA of the left neck mass. Per the medical oncology report this was suspicious for atypical squamous cells. The patient was sent to the ER for further workup. On June [address] scan of the neck which revealed a 1.8 cm base of tongue mass on the right, with a 3 cm left level II lymph node, and several smaller right cervical lymph nodes appearing suspicious. As she was unable to take food by mouth the patient stated she has lost significant weight. She had a PEG tube placed on June 15. She underwent a CT scan of the chest, abdomen and pelvis on June 18 to evaluate for distant disease. This revealed no evidence of distant metastasis, however there was note made of a 3 cm density in the retroperitoneum on the right and there was some concern for retained surgical material. The patient appears to be a somewhat poor historian. She noted that she has had difficulty eating for the past couple weeks. She states she has had significant weight loss. She states she is able to drink fluids, but any food gets caught in the back of her throat and she throws it up. She states that one evening she did cough up a small amount of blood. She reports no significant pain in her throat at this time. Review of Systems Constitutional: Denies chills, Denies fever Eyes: denies blurred vision Ears, nose, mouth and throat: Reports dysphagia, Reports hoarseness, Reports neck lump, Denies ant. neck pain, Denies epistaxis, Denies headache Cardiovascular: Denies edema Respiratory: Denies cough, Denies dyspnea Gastrointestinal: Denies BRBPR Genitourinary: Denies flank pain Neurological: Reports memory loss, Denies aphasia, Denies ataxia Past Medical History Past Medical History: Hypertension Additional Past Medical History / Comment(s): Heart Ablation (10 years) History of Any Multi-Drug Resistant Organisms: None Reported Past Surgical History: Ablation, Hysterectomy Additional Past Surgical History / Comment(s): Partial colectomy (2001) for colon cancer per patient Past Psychological History: Anxiety Smoking Status: Former smoker (Smoked 1/2 pack for 50 years - quit 10 years ago) Past Alcohol Use History: None Reported Past Drug Use History: None Reported Medications and Allergies Home Medications Medication Instructions Recorded Confirmed Type Acetaminophen [Tylenol Arthritis] 1,300 mg PO Q8H 06/12/20 06/12/20 History Atorvastatin [Lipitor] 40 mg PO DAILY 06/12/20 06/12/20 History Metoprolol Succinate (ER) [Toprol 50 mg PO DAILY 06/12/20 06/12/20 History Xl] Multivit with Calcium,Iron,Min 1 tab PO DAILY 06/12/20 06/12/20 History [Women's Multivitamin] OLANZapine [ZyPREXA] 5 mg PO DAILY 06/12/20 06/12/20 History Sertraline [Zoloft] 50 mg PO DAILY 06/12/20 06/12/20 History busPIRone HCl [Buspar] 10 mg PO TID PRN 06/12/20 06/12/20 History traMADol HCL 50 mg PO QID PRN 06/12/20 06/12/20 History Allergies Allergy/AdvReac Type Severity Reaction Status Date / Time morphine Allergy Unknown Verified 06/12/20 16:01 Physical Exam Vitals: Vital Signs Temp Pulse Resp BP Pulse Ox 06/19/20 13:59 98.4 F 80 17 173/80 06/19/20 10:32 88 06/19/20 08:54 93 L 06/19/20 07:18 97.8 F 92 17 170/74 88 L 06/19/20 04:14 98.6 F 82 18 167/81 91 L 06/18/20 21:20 98.3 F 70 18 180/83 96 06/18/20 16:43 97.9 F 74 16 75/47 94 L Intake and Output 06/19/20 06/19/20 06/19/20 06:59 14:59 22:59 Intake Total 700 Output Total 25 Balance 675 Intake: Intake, IV Titration 700 Amount Piperacillin-Tazobactam 3 100 .375 gm In Sodium Chloride 0.9% 100 ml @ 25 mls/hr IVPB Q8HR [facility] Rx# :[id number] Sodium Chloride 0.9% 1, 600 000 ml @ 75 mls/hr IV . [id number] [facility] Rx#:[id number] Output: Drainage 25 Abdomen 25 Other: Voiding Method Toilet # Voids 2 Weight 53.6 kg - Constitutional General appearance: no acute distress, thin - EENT Eyes: EOMI, PERRLA - Neck Neck: lymphadenopathy (Bilateral abnormal adenopathy) - Respiratory Respiratory: bilateral: CTA - Cardiovascular Rhythm: regular - Gastrointestinal General gastrointestinal: no distended, no tenderness - Integumentary Integumentary: no calor - Neurologic Neurologic: CNII-XII intact - Psychiatric Psychiatric: A&O x's 3, appropriate affect Results CBC & Chem 7: 06/19/20 06:13 06/18/20 06:20 Labs: Abnormal Lab Results - Last 24 Hours (Table) 06/18/20 06/19/20 Range/Units 16:43 06:13 WBC 11.61 H 14.29 H (4.50-10.00) X 10*3/uL RBC 3.43 L 3.50 L (4.10-5.20) X 10*6/uL Hgb 10.5 L 10.7 L (12.0-15.0) g/dL Hct 33.0 L 33.4 L (37.2-46.3) % MCHC 31.8 L (32.0-37.0) g/dL RDW 14.9 H 15.0 H (11.5-14.5) % Immature Gran # 0.06 H (0.00-0.04) X 10*3/uL Neutrophils # 9.38 H (1.80-7.70) X 10*3/uL Monocytes # 1.11 H 1.50 H (0.20-1.00) X 10*3/uL Eosinophils # 0.40 H 0.52 H (0.04-0.35) X 10*3/uL CT scan - abdomen: report reviewed, image reviewed CT scan - chest: report reviewed, image reviewed CT Scan - head: report reviewed, image reviewed CT scan - pelvis: report reviewed, image reviewed Assessment and Plan Assessment: The patient is a 80-year-old female with a recent history of inability to eat secondary to food getting stuck in the back of her throat and voice changes. Her initial workup is highly suspicious for a base of tongue cancer with bilateral cervical adenopathy. 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 I do not have a copy of the patient's outside FNA report, but this reportedly showed atypical cells but was nondiagnostic of malignancy. I agree with medical oncology that a core biopsy would be beneficial to prove the diagnosis. Despite our conversation, the patient did seem skeptical regarding her diagnosis. She does not appear to have distant disease at this time. I discussed with the patient that the most likely course of treatment would be definitive radiation possibly with low-dose sensitizing chemotherapy. At the current time the patient is clearly malnourished and I'm unsure how well she would tolerate this treatment as she appears to have limited social support. The patient is planning to go to a rehabilitation facility this coming week. She states that she is planning to stay there for 1-2 weeks. I will call her daughter to discuss her care in further detail. The patient appears somewhat forgetful and has some difficulty with her timelines. It is difficult to get a good idea of her performance status at this time. Time with Patient: Greater than 30
--- NOTE | 2020-06-19 18:54 | PN ---
PROGRESS NOTE DATE OF SERVICE: 06/19/2020. CHIEF COMPLAINT: Carcinoma of the tongue with dysphagia. HISTORY OF PRESENT ILLNESS: This lady was doing fairly well, then suddenly during night she started to have a lot of abdominal pain. PEG tube was placed to drainage and elier blood was obtained. Hemoglobin has been stable as well as her vital signs. She has had no nausea, vomiting, melena, hematochezia, etc. PHYSICAL EXAMINATION: Color remains good. Chest is clear. The cardiac exam is normal and the abdomen seemed soft without any definite masses. Bowel sounds are heard. IMPRESSION: 1. Upper gastrointestinal bleed. 2. Carcinoma of the tongue with metastases. PLAN: 1. Stop PEG tube feedings and place tube to dependent drainage. 2. Await further guidelines from Surgery. 3. Follow hemoglobin. 4. Check coagulation status. 5. Treat her elevated blood pressure. 6. Wait for any further guidelines from General Surgery. MMODL / IJN: [id number] /
[2020-06-19] MEDS: lisinopriL 20 MG TAB PO SCH (22:12)
[2020-06-19] MEDS: traZODone HCL 50 MG TAB PO SCH (22:12)
[2020-06-19] MEDS: OLANZapine 5 MG TAB PO SCH (22:13)
[2020-06-20] MEDS: SODIUM CHLORIDE 0.9% 1,000 ML IV SCH ×3 (00:49→23:19)
[2020-06-20] MEDS: hydrALAZINE HCL 25 MG TAB PO SCH ×4 (00:54→21:11)
[2020-06-20] MEDS: PIPERACILLIN-TAZOBACTAM 3.375 GM in SODIUM CHLORIDE 0.9% 100 ML IVPB SCH ×3 (01:09→17:13)
[2020-06-20] MEDS: HYDROmorphone 0.5 MG/0.5 ML SYRINGE IVP PRN ×4 (01:23→23:12)
[2020-06-20 08:52] LABS: WBC 11.75 X 10*3/uL (4.50-10.00)
[2020-06-20 08:53] LABS: Basophils # (A) 0.06 X 10*3/uL (0.00-0.10); Basophils % (A) 0.5 %; Eosinophils % (A) 3.4 %; HCT 29.6 % (37.2-46.3); HGB 9.3 g/dL (12.0-15.0); Lymphocytes % (A) 15.3 %; MCH 30.1 pg (27.0-32.0); MCHC 31.4 g/dL (32.0-37.0); MCV 95.8 fL (80.0-97.0); Mean Platelet Volume 10.4 fL (9.5-12.2); Monocytes # (A) 1.41 X 10*3/uL (0.20-1.00); Neutrophils # (A) 8.04 X 10*3/uL (1.80-7.70); Neutrophils % (A) 68.5 %; Platelet Count 302 X 10*3/uL (140-440); RBC 3.09 X 10*6/uL (4.10-5.20); RDW 14.6 % (11.5-14.5)
[2020-06-20 09:33] LABS: African American GFR (CKD) 81.3 (60.0-200.0); Albumin 3.2 g/dL (3.80-4.90); Albumin/Globulin Ratio 1.52 (1.60-3.17); Anion Gap 6.7 mmol/L (4.00-12.00); BUN/Creat Ratio 16.25 Ratio (12.00-20.00); Calcium 9.3 mg/dL (8.7-10.3); Carbon Dioxide 30.3 mmol/L (21.6-31.8); Globulin 2.1 g/dL (1.6-3.3); Magnesium 1.8 mg/dL (1.5-2.4); Non-African American GFR(CKD) 70.1 (60.0-200.0); Potassium 3.4 mmol/L (3.5-5.5); Total Bilirubin 0.3 mg/dL (0.3-1.2); Total Protein 5.3 g/dL (6.2-8.2)
[2020-06-20] MEDS: METOPROLOL SUCCINATE (ER) 50 MG TAB.ER.24H PO SCH (10:00)
[2020-06-20] MEDS: MULTIVITAMINS, THERA 1 EACH TAB PO SCH (10:00)
[2020-06-20] MEDS: ATORVASTATIN 40 MG TAB PO SCH (10:00)
[2020-06-20] MEDS: SERTRALINE 50 MG TAB PO SCH (10:00)
[2020-06-20] MEDS: PANTOPRAZOLE 40 MG/10 ML VIAL IV SCH (10:02)
--- NOTE | 2020-06-20 13:58 | PN ---
PROGRESS NOTE DATE OF SERVICE: 06/20/2020 CHIEF COMPLAINT: CA of the tongue. HISTORY OF PRESENT ILLNESS: This lady seems to be doing fairly well. She is not having any further problems with abdominal pain or GI bleeding. PHYSICAL EXAMINATION: Chest is clear. Cardiac exam is normal. The abdomen is soft and nontender. IMPRESSION: 1. Metastatic cancer of the tongue. 2. Dysphagia. 3. Episode of upper gastrointestinal hemorrhage-resolved. PLAN: Continue with tube feedings and increase activity while waiting for further directions for management of her neoplasm and discharged to the assisted. MMODL / IJN: [id number] /
[2020-06-20] MEDS: busPIRone HCl 10 MG TAB PO PRN (15:02)
[2020-06-20] MEDS ORDERED: MD COMMUNICATION TO PHARMACY 1 EACH MISC PO PRN (18:36)
--- NOTE | 2020-06-20 18:39 | P.PN ---
Subjective Progress Note Date: 06/20/20 Reports PEG tube tender at rib site. No bleeding, redness. She has chronic pain syndrome. Has garbled speech. Plan for scheduled tylenol liquid suspension for pain. Objective - Vital Signs Vital signs: Vital Signs Temp 98.7 F 06/20/20 12:01 Pulse 71 06/20/20 12:01 Resp 18 06/20/20 12:01 BP 167/84 06/20/20 12:01 Pulse Ox 99 06/20/20 12:01 Intake & Output 06/19/20 06/20/20 06/20/20 18:59 06:59 18:59 Weight 52.5 kg Other: Voiding Method Toilet Toilet Toilet # Voids 1 # Bowel Movements 3 1 - Labs CBC & Chem 7: 06/20/20 05:44 06/20/20 05:44 Labs: Abnormal Lab Results - Last 24 Hours (Table) 06/20/20 06/20/20 Range/Units 05:44 05:44 WBC 11.75 H (4.50-10.00) X 10*3/uL RBC 3.09 L (4.10-5.20) X 10*6/uL Hgb 9.3 L (12.0-15.0) g/dL Hct 29.6 L (37.2-46.3) % MCHC 31.4 L (32.0-37.0) g/dL RDW 14.6 H (11.5-14.5) % Neutrophils # 8.04 H (1.80-7.70) X 10*3/uL Monocytes # 1.41 H (0.20-1.00) X 10*3/uL Eosinophils # 0.40 H (0.04-0.35) X 10*3/uL Potassium 3.4 L (3.5-5.5) mmol/L Glucose 120 H (70-110) mg/dL Alkaline Phosphatase 159 H (41-126) U/L Total Protein 5.3 L (6.2-8.2) g/dL Albumin 3.20 L (3.80-4.90) g/dL Albumin/Globulin Ratio 1.52 L (1.60-3.17) g/dL
[2020-06-20] MEDS: traZODone HCL 50 MG TAB PO SCH (21:11)
[2020-06-20] MEDS: lisinopriL 20 MG TAB PO SCH (21:12)
[2020-06-20] MEDS: OLANZapine 5 MG TAB PO SCH (21:13)
[2020-06-20] MEDS: ACETAMINOPHEN ORAL SUSP (PEDS) 3,840 MG/120 ML BOTTLE PEG/G-TUBE SCH (21:14)
[2020-06-21] MEDS: PIPERACILLIN-TAZOBACTAM 3.375 GM in SODIUM CHLORIDE 0.9% 100 ML IVPB SCH ×3 (01:07→16:15)
[2020-06-21] MEDS: ACETAMINOPHEN ORAL SUSP (PEDS) 3,840 MG/120 ML BOTTLE PEG/G-TUBE SCH ×5 (01:47→21:07)
[2020-06-21] MEDS: SERTRALINE 50 MG TAB PO SCH (09:16)
[2020-06-21] MEDS: hydrALAZINE HCL 25 MG TAB PO SCH ×3 (09:17→21:07)
[2020-06-21] MEDS: ATORVASTATIN 40 MG TAB PO SCH (09:17)
[2020-06-21] MEDS: PANTOPRAZOLE 40 MG/10 ML VIAL IV SCH (09:17)
[2020-06-21] MEDS: MULTIVITAMINS, THERA 1 EACH TAB PO SCH (09:17)
[2020-06-21] MEDS: METOPROLOL SUCCINATE (ER) 50 MG TAB.ER.24H PO SCH (09:17)
--- NOTE | 2020-06-21 15:19 | P.PN ---
Subjective Progress Note Date: 06/21/20 Pain is better controlled with scheduled tylenol. She is tolerating tube feeds. Hgb down 1 g. Continue scheduled non-narcotic pain management. Objective - Vital Signs Vital signs: Vital Signs Temp 98.2 F 06/21/20 12:35 Pulse 77 06/21/20 12:35 Resp 18 06/21/20 12:35 BP 134/72 06/21/20 12:35 Pulse Ox 95 06/21/20 12:35 Intake & Output 06/20/20 06/21/20 06/21/20 18:59 06:59 18:59 Weight 52.2 kg Other: Voiding Method Toilet Toilet Toilet # Voids 1 3 1 # Bowel Movements 1 1 1 - Labs CBC & Chem 7: 06/20/20 05:44 06/20/20 05:44
[2020-06-21] MEDS: SODIUM CHLORIDE 0.9% 1,000 ML IV SCH (16:14)
[2020-06-21] MEDS: HYDROmorphone 0.5 MG/0.5 ML SYRINGE IVP PRN (20:23)
[2020-06-21] MEDS: lisinopriL 20 MG TAB PO SCH (21:06)
[2020-06-21] MEDS: traZODone HCL 50 MG TAB PO SCH (21:06)
[2020-06-21] MEDS: OLANZapine 5 MG TAB PO SCH (21:07)
[2020-06-22] MEDS: PIPERACILLIN-TAZOBACTAM 3.375 GM in SODIUM CHLORIDE 0.9% 100 ML IVPB SCH ×3 (00:06→16:59)
[2020-06-22] MEDS: SODIUM CHLORIDE 0.9% 1,000 ML IV SCH ×2 (01:23→15:07)
[2020-06-22] MEDS: ACETAMINOPHEN ORAL SUSP (PEDS) 3,840 MG/120 ML BOTTLE PEG/G-TUBE SCH ×4 (03:43→21:17)
[2020-06-22] MEDS: hydrALAZINE HCL 25 MG TAB PO SCH ×3 (08:35→21:17)
[2020-06-22] MEDS: METOPROLOL SUCCINATE (ER) 50 MG TAB.ER.24H PO SCH (08:35)
[2020-06-22] MEDS: MULTIVITAMINS, THERA 1 EACH TAB PO SCH (08:35)
[2020-06-22] MEDS: ATORVASTATIN 40 MG TAB PO SCH (08:35)
[2020-06-22] MEDS: SERTRALINE 50 MG TAB PO SCH (08:35)
[2020-06-22] MEDS: PANTOPRAZOLE 40 MG/10 ML VIAL IV SCH (08:36)
[2020-06-22] MEDS: HYDROcodone/APAP 15 ML SOLUTION PO PRN ×2 (09:16→19:10)
[2020-06-22 09:19] LABS: Basophils # (A) 0.1 k/uL (0-0.2); Basophils % (A) 1 %; Eosinophils # (A) 0.5 k/uL (0-0.7); Eosinophils % (A) 5 %; HCT 28.3 % (34.0-46.0); Lymphocytes # (A) 1.6 k/uL (1.0-4.8); Lymphocytes % (A) 16 %; MCH 30.7 pg (25.0-35.0); MCHC 32.8 g/dL (31.0-37.0); MCV 93.6 fL (80.0-100.0); Mean Platelet Volume 7.5; Monocytes # (A) 0.7 k/uL (0-1.0); Monocytes % (A) 8 %; Neutrophils # (A) 6.7 k/uL (1.3-7.7); Neutrophils % (A) 69 %; Platelet Count 320 k/uL (150-450); RBC 3.02 m/uL (3.80-5.40); WBC 9.8 k/uL (3.8-10.6)
[2020-06-22 09:30] LABS: HGB 9.3 gm/dL (11.4-16.0)
[2020-06-22 09:31] LABS: African American GFR (CKD) 88 (>60 ml/min/1.73 sqM); Anion Gap 3 mmol/L; Blood Urea Nitrogen 11 mg/dL (7-17); Calcium 8.7 mg/dL (8.4-10.2); Carbon Dioxide 34 mmol/L (22-30); Chloride 102 mmol/L (98-107); Glucose 119 mg/dL (74-99); Non-African American GFR(CKD) 76 (>60 ml/min/1.73 sqM); Potassium 3.5 mmol/L (3.5-5.1); Sodium 139 mmol/L (137-145)
--- NOTE | 2020-06-22 11:09 | P.PN ---
<Aline Garcia - Last Filed: 06/22/20 11:02> Subjective Progress Note Date: 06/22/20 CHIEF COMPLAINT: Dysphagia, malnutrition HISTORY OF PRESENT ILLNESS: Patient is status post PEG tube placement on 06/15/20. Patient reports improvement in her abdominal pain around the PEG tube site. She is requiring the [place]. She is tolerating tube feedings. No residual reported. She is having diarrhea. She did report about 6 episodes yesterday. She did have 2 episodes of diarrhea this morning. She denies any nausea or vomiting. She is followed by oncology and radiology oncologist. It appears that patient is going to need repeat biopsy of her tongue mass per oncology. She is afebrile. WBC 9.8 hemoglobin 9.3 potassium 3.5 creatinine 0.75 rn case manager is working on discharge planning to rehab PHYSICAL EXAM: VITAL SIGNS: Reviewed. GENERAL: Well-developed in no acute distress. HEENT: No sclera icterus. Extraocular movements grossly intact. Moist buccal mucosa. Head is atraumatic, normocephalic. ABDOMEN: Soft. Nondistended. Tenderness noted around PEG tube site. PEG tube site clean dry and intact. NEUROLOGIC: Alert and oriented. Cranial nerves II through XII grossly intact. ASSESSMENT: 1. Moderate protein calorie malnutrition status post PEG tube placement 2. Dysphagia 3. Base of Tongue mass PLAN: -Continue supportive care -Continue tube feedings -Continue pain medication as needed Physician Practice Assistant note has been reviewed by physician. Signing provider agrees with the documented findings, assessment, and plan of care. Objective - Vital Signs Vital signs: Vital Signs Temp 97.9 F 06/22/20 05:00 Pulse 74 06/22/20 05:00 Resp 16 06/22/20 05:00 BP 159/83 06/22/20 05:00 Pulse Ox 95 06/22/20 10:35 Intake & Output 06/21/20 06/22/20 06/22/20 18:59 06:59 18:59 Intake Total 90 1330 30 Balance 90 1330 30 Weight 52.2 kg 53.5 kg Intake: Intake, IV Titration 1000 Amount Piperacillin-Tazobactam 3 100 .375 gm In Sodium Chloride 0.9% 100 ml @ 25 mls/hr IVPB Q8HR [facility] Rx# :[id number] Sodium Chloride 0.9% 1, 900 000 ml @ 75 mls/hr IV . [id number] [facility] Rx#:[id number] Tube Feeding 90 330 30 Other: Voiding Method Toilet # Voids 1 # Bowel Movements 1 - Labs CBC & Chem 7: 06/22/20 08:31 06/22/20 08:31 Labs: Abnormal Lab Results - Last 24 Hours (Table) 06/22/20 06/22/20 Range/Units 08:31 08:31 RBC 3.02 L (3.80-5.40) m/uL Hgb 9.3 L D (11.4-16.0) gm/dL Hct 28.3 L (34.0-46.0) % Carbon Dioxide 34 H (22-30) mmol/L Glucose 119 H (74-99) mg/dL <Devang Velazquez - Last Filed: 06/22/20 14:09> Subjective As above. Patient tolerating feedings. No pain at this time. We'll sign off. Please call if needed. Objective - Vital Signs Vital signs: Vital Signs Temp 97.5 F L 06/22/20 11:46 Pulse 74 06/22/20 11:46 Resp 17 06/22/20 11:46 BP 173/80 06/22/20 11:46 Pulse Ox 98 06/22/20 11:46 Intake & Output 06/21/20 06/22/20 06/22/20 18:59 06:59 18:59 Intake Total 90 1330 30 Balance 90 1330 30 Weight 52.2 kg 53.5 kg 53.5 kg Intake: Intake, IV Titration 1000 Amount Piperacillin-Tazobactam 3 100 .375 gm In Sodium Chloride 0.9% 100 ml @ 25 mls/hr IVPB Q8HR [facility] Rx# :[id number] Sodium Chloride 0.9% 1, 900 000 ml @ 75 mls/hr IV . [id number] [facility] Rx#:[id number] Tube Feeding 90 330 30 Other: Voiding Method Toilet # Voids 1 # Bowel Movements 1 - Labs CBC & Chem 7: 06/22/20 08:31 06/22/20 08:31 Labs: Abnormal Lab Results - Last 24 Hours (Table) 06/22/20 06/22/20 Range/Units 08:31 08:31 RBC 3.02 L (3.80-5.40) m/uL Hgb 9.3 L D (11.4-16.0) gm/dL Hct 28.3 L (34.0-46.0) % Carbon Dioxide 34 H (22-30) mmol/L Glucose 119 H (74-99) mg/dL Assessment and Plan (1) Malnutrition Current Visit: Yes Status: Acute Code(s): E46 - UNSPECIFIED PROTEIN-CALORIE MALNUTRITION SNOMED Code(s): 97166920
[2020-06-22 13:27] VITALS: BMI 19.6
[2020-06-22] MEDS: busPIRone HCl 10 MG TAB PO PRN (15:58)
--- NOTE | 2020-06-22 20:19 | P.PN ---
Subjective Progress Note Date: 06/22/20 Principal diagnosis: Neck mass Will need to see ENT at discharge to repeat Biopsy. Objective - Vital Signs Vital signs: Vital Signs Temp 97.5 F L 06/22/20 11:46 Pulse 74 06/22/20 11:46 Resp 17 06/22/20 11:46 BP 173/80 06/22/20 11:46 Pulse Ox 98 06/22/20 11:46 Intake & Output 06/22/20 06/22/20 06/23/20 06:59 18:59 06:59 Intake Total 1330 30 Balance 1330 30 Weight 53.5 kg 53.5 kg Intake: Intake, IV Titration 1000 Amount Piperacillin-Tazobactam 3 100 .375 gm In Sodium Chloride 0.9% 100 ml @ 25 mls/hr IVPB Q8HR [facility] Rx# :[id number] Sodium Chloride 0.9% 1, 900 000 ml @ 75 mls/hr IV . [id number] [facility] Rx#:[id number] Tube Feeding 330 30 - Exam Gen: No acute distress. HEENT: Mucosa moist Neck: Supple Lymph: Left [address] palpable, mobile and nontender. Lungs: No respiratory distress Heart: Regular rate Abd: Soft MSK: appropriate strength in all 4 extremities Neuro: Alert and oriented x3 Psych: Appropriate affect - Labs CBC & Chem 7: 06/22/20 08:31 06/22/20 08:31 Labs: Abnormal Lab Results - Last 24 Hours (Table) 06/22/20 06/22/20 Range/Units 08:31 08:31 RBC 3.02 L (3.80-5.40) m/uL Hgb 9.3 L D (11.4-16.0) gm/dL Hct 28.3 L (34.0-46.0) % Carbon Dioxide 34 H (22-30) mmol/L Glucose 119 H (74-99) mg/dL Assessment and Plan Plan: Comments: CT neck reviewed. Right base of tongue mass and right cervical LAD. Assessment and Plan Assessment: 1. Base of tongue mass 2. Renal dysfunction, unknown if acute vs chronic as no baseline Plan: Neck Mass: Biopsy on 06/12/20 - Non-diagnostic and a repeat tissue biopsy will be required.Since the mass is unable to be palpated she will need to return to ENT for this. PLease set up this biopsy prior to discharge since she will likely require rehab in the interim. She will also need PET scan as outpatient for adenopathy on CTs. Creatinine continues to improve and with Peg tube placed will order staging CTs Chest, Abdomen and pelvis and can administer through peg. Physician Attest: I have completed the full history and physical and agree with above dictation, dictated as a scribe.
[2020-06-22] MEDS: traZODone HCL 50 MG TAB PO SCH (21:17)
[2020-06-22] MEDS: OLANZapine 5 MG TAB PO SCH (21:17)
[2020-06-22] MEDS: lisinopriL 20 MG TAB PO SCH (21:17)
[2020-06-22] MEDS: HYDROmorphone 0.5 MG/0.5 ML SYRINGE IVP PRN (21:21)
[2020-06-23] MEDS: PIPERACILLIN-TAZOBACTAM 3.375 GM in SODIUM CHLORIDE 0.9% 100 ML IVPB SCH ×3 (00:30→16:05)
[2020-06-23] MEDS: SODIUM CHLORIDE 0.9% 1,000 ML IV SCH ×2 (03:26→19:29)
[2020-06-23] MEDS: ACETAMINOPHEN ORAL SUSP (PEDS) 3,840 MG/120 ML BOTTLE PEG/G-TUBE SCH ×4 (03:33→22:09)
[2020-06-23] MEDS: SERTRALINE 50 MG TAB PO SCH (07:56)
[2020-06-23] MEDS: PANTOPRAZOLE 40 MG/10 ML VIAL IV SCH (07:56)
[2020-06-23] MEDS: MULTIVITAMINS, THERA 1 EACH TAB PO SCH (07:57)
[2020-06-23] MEDS: METOPROLOL SUCCINATE (ER) 50 MG TAB.ER.24H PO SCH (07:57)
[2020-06-23] MEDS: ATORVASTATIN 40 MG TAB PO SCH (07:57)
[2020-06-23] MEDS: hydrALAZINE HCL 25 MG TAB PO SCH ×3 (07:57→22:08)
--- NOTE | 2020-06-23 12:05 | DS ---
DISCHARGE SUMMARY CHIEF COMPLAINT: Difficulty swallowing. HISTORY OF PRESENT ILLNESS AND PHYSICAL EXAM: Details of this lady's history and physical can be found in the initial workup. LABORATORY STUDIES: While she was in a hospital she had laboratory studies, details of which can be found in the laboratory section of her chart. COURSE IN THE HOSPITAL: After admission, she was placed on bedrest, started intravenous fluids. She was unable to swallow and eventually a PEG tube was placed. She was seen in consult by Oncology. However, the fine-needle aspirate had been done on the mass in her neck prior to coming to the hospital was returned without a definite diagnosis of neoplasia. It was felt that with the patient's debility, that she would benefit from physical therapy in a care home and arrangements were made for her to go to [facility]. An appointment will be set up for her to go back to the ENT for another biopsy and to obtain a definitive diagnosis. FINAL DIAGNOSES: 1. Mass at the base of the tongue. 2. Inability to swallow. 3. Cervical adenopathy. 4. Renal failure. 5. Hypertension. OPERATIONS: PEG tube. CONSULTATIONS: Oncology and General Surgery. MMODL / IJN: [id number] /
--- NOTE | 2020-06-23 13:55 | PN ---
PROGRESS NOTE DATE OF SERVICE: 06/22/2020 CHIEF COMPLAINT: Carcinoma of the tongue. HISTORY OF PRESENT ILLNESS: This lady has been stable and awaits discharge to [facility]. Oncology is still evaluating her case and is awaiting results of her FNA. PHYSICAL EXAMINATION: She is awake and alert. Chest is clear. Cardiac exam is normal. Abdomen is soft and PEG tubes in place. IMPRESSION: Carcinoma of the tongue with metastases. PLAN: 1. Await FNA report. 2. Probably discharge to [facility] in the next 2 or 3 days. MMODL / IJN: [id number] /
--- NOTE | 2020-06-23 14:04 | PN ---
PROGRESS NOTE DATE OF SERVICE: 06/22/2020 CHIEF COMPLAINT: CA of the tongue. HISTORY OF PRESENT ILLNESS: This lady is awaiting discharge planning. Apparently the biopsy was done was not diagnostic. No definite malignant cells were obtained. This will have to be repeated. PHYSICAL EXAMINATION: Chest is clear. Cardiac exam is normal. Abdomen is soft, nontender. PEG tube is in place and there is no blood. IMPRESSION: Dysphagia due to carcinoma of the base of the tongue with metastases to cervical nodes. PLAN: Probably discharge to long-term in the next day or 2. MMODL / IJN: [id number] /
[2020-06-23] MEDS: busPIRone HCl 10 MG TAB PO PRN ×2 (14:32→22:08)
[2020-06-23] MEDS: HYDROcodone/APAP 15 ML SOLUTION PO PRN (19:25)
[2020-06-23] MEDS: traZODone HCL 50 MG TAB PO SCH (22:08)
[2020-06-23] MEDS: lisinopriL 20 MG TAB PO SCH (22:09)
[2020-06-23] MEDS: OLANZapine 5 MG TAB PO SCH (22:10)
--- NOTE | 2020-06-23 22:27 | P.PN ---
Subjective Progress Note Date: 06/21/20 Principal diagnosis: Neck mass Complaints of pain, resting in bed. Encouraging increase activity Objective - Vital Signs Vital signs: Vital Signs Temp 98.2 F 06/23/20 20:37 Pulse 73 06/23/20 20:37 Resp 18 06/23/20 20:37 BP 176/90 06/23/20 20:37 Pulse Ox 93 L 06/23/20 20:37 Intake & Output 06/23/20 06/23/20 06/24/20 06:59 18:59 06:59 Intake Total 885 Balance 885 Weight 53 kg Intake: Intake, IV Titration 825 Amount Piperacillin-Tazobactam 3 100 .375 gm In Sodium Chloride 0.9% 100 ml @ 25 mls/hr IVPB Q8HR [facility] Rx# :[id number] Sodium Chloride 0.9% 1, 725 000 ml @ 75 mls/hr IV . [id number] [facility] Rx#:[id number] Tube Feeding 60 Other: Voiding Method Toilet Toilet # Voids 1 4 1 # Bowel Movements 1 1 - Exam Gen: No acute distress. HEENT: Mucosa moist Neck: Supple Lymph: Left [address] palpable, mobile and nontender. Lungs: No respiratory distress Heart: Regular rate Abd: Soft MSK: appropriate strength in all 4 extremities Neuro: Alert and oriented x3 Psych: Appropriate affect - Labs CBC & Chem 7: 06/22/20 08:31 06/22/20 08:31 Assessment and Plan Plan: Comments: CT neck reviewed. Right base of tongue mass and right cervical LAD. Assessment and Plan Assessment: 1. Base of tongue mass 2. Renal dysfunction, unknown if acute vs chronic as no baseline Plan: Neck Mass: Biopsy on 06/12/20 - Non-diagnostic and a repeat tissue biopsy will be req uired.Since the mass is unable to be palpated she will need to return to ENT for this. PLease set up this biopsy prior to discharge since she will likely require rehab in the interim. She will also need PET scan as outpatient for adenopathy on CTs. Creatinine continues to improve and with Peg tube placed will order staging CTs Chest, Abdomen and pelvis and can administer through peg. Discussed case with general surgery and tolerating peg feedings at this time
[2020-06-24] MEDS: PIPERACILLIN-TAZOBACTAM 3.375 GM in SODIUM CHLORIDE 0.9% 100 ML IVPB SCH ×2 (00:10→09:07)
[2020-06-24] MEDS: ACETAMINOPHEN ORAL SUSP (PEDS) 3,840 MG/120 ML BOTTLE PEG/G-TUBE SCH ×2 (03:55→09:04)
[2020-06-24] MEDS: SODIUM CHLORIDE 0.9% 1,000 ML IV SCH (05:50)
[2020-06-24] MEDS: HYDROcodone/APAP 15 ML SOLUTION PO PRN (06:29)
[2020-06-24 08:19] VITALS: BP 145/76; PULSE 85; RESP 16; TEMP 98.3
[2020-06-24] MEDS: hydrALAZINE HCL 25 MG TAB PO SCH (09:03)
[2020-06-24] MEDS: ATORVASTATIN 40 MG TAB PO SCH (09:03)
[2020-06-24] MEDS: METOPROLOL SUCCINATE (ER) 50 MG TAB.ER.24H PO SCH (09:03)
[2020-06-24] MEDS: MULTIVITAMINS, THERA 1 EACH TAB PO SCH (09:03)
[2020-06-24] MEDS: SERTRALINE 50 MG TAB PO SCH (09:03)
[2020-06-24] MEDS: PANTOPRAZOLE 40 MG/10 ML VIAL IV SCH (09:12)
--- NOTE | 2020-06-24 20:10 | PN ---
PROGRESS NOTE DATE OF SERVICE: 06/24/2020 This patient was supposed to have been discharged to a residential yesterday but apparently was not for some reason. It is felt that she will be discharged today. MMODL / IJN: [id number] /
== END 2020-06-24 10:11 | DRG 147 ==
LOC: EC 13:31 → 5NMEDONC 15:46
PROVIDERS: ADMIT Family Medicine; ATTEND Family Medicine
PROC: 0DH63UZ Insertion of Feeding Device into Stomach, Percutaneous Approach (ICD-10-PCS; principal; 2020-06-15 08:55)
PROC: 3E0G76Z Introduction of Nutritional Substance into Upper GI, Via Natural or Artificial Opening (ICD-10-PCS; principal; 2020-06-15 08:55)
DX: C01 Malignant neoplasm of base of tongue (principal); C77.0 Secondary and unspecified malignant neoplasm of lymph nodes of head, face and neck; E44.0 Moderate protein-calorie malnutrition; Z68.1 Body mass index [BMI] 19.9 or less, adult; K92.2 Gastrointestinal hemorrhage, unspecified; E86.0 Dehydration; G89.4 Chronic pain syndrome; I10 Essential (primary) hypertension; N19 Unspecified kidney failure; R13.10 Dysphagia, unspecified; R47.1 Dysarthria and anarthria; Z20.822 Contact with and (suspected) exposure to COVID-19; Z88.5 Allergy status to narcotic agent; F41.9 Anxiety disorder, unspecified; Z90.81 Acquired absence of spleen; Z90.710 Acquired absence of both cervix and uterus; Z90.49 Acquired absence of other specified parts of digestive tract; Z87.891 Personal history of nicotine dependence; Z85.038 Personal history of other malignant neoplasm of large intestine; Z79.899 Other long term (current) drug therapy
CPT/HCPCS: 36415; 43246; 70491; 71260; 74177; 80048; 80053; 83605; 83735; 85025; 85610; 85730; 87635; 94760; 96360; 96361; 99285

== ENCOUNTER 2020-07-03 12:31 | Emergency (ER) | payer MEDICARE ==
[2020-07-03 12:40] VITALS: RESP 18; TEMP 98.2
[2020-07-03 13:21] LABS: Basophils # (A) 0.1 k/uL (0-0.2); Basophils % (A) 1 %; Eosinophils # (A) 0.3 k/uL (0-0.7); Eosinophils % (A) 3 %; HCT 34.5 % (34.0-46.0); HGB 11.4 gm/dL (11.4-16.0); Lymphocytes # (A) 1.6 k/uL (1.0-4.8); Lymphocytes % (A) 16 %; MCH 30.7 pg (25.0-35.0); MCV 93.1 fL (80.0-100.0); Monocytes # (A) 0.6 k/uL (0-1.0); Monocytes % (A) 6 %; Neutrophils # (A) 7.2 k/uL (1.3-7.7); Neutrophils % (A) 72 %; RBC 3.71 m/uL (3.80-5.40); RDW 14.7 % (11.5-15.5)
[2020-07-03 13:26] LABS: Platelet Count 644 k/uL (150-450)
--- NOTE | 2020-07-03 14:22 | ED ---
General Adult HPI - General Chief complaint: Recheck/Abnormal Lab/Rx Stated complaint: Blood in Vomit Time Seen by Provider: 07/03/20 12:34 Source: patient, EMS, RN notes reviewed Mode of arrival: EMS Limitations: no limitations - History of Present Illness Initial comments: 80-year-old female with a past medical history of hypertension, throat cancer p resents to the emergency room for a chief complaint of bleeding. Patient reports that she was in the shower when she started to bleed out of her mouth. Patient states it persisted slightly and 911 was called. Patient was apparently diagnosed with cancer recently. She states she is following up outpatient with ENT. States that she is figuring all of this out with her insurance currently. States that she does not want to be admitted and would like to go home.Patient has no other complaints at this time including shortness of breath, chest pain, abdominal pain, nausea or vomiting, headache, or visual changes. - Related Data Home Medications Medication Instructions Recorded Confirmed Metoprolol Succinate (ER) [Toprol 50 mg PO DAILY 06/12/20 06/12/20 XL] OLANZapine [ZyPREXA] 5 mg PO DAILY 06/12/20 06/12/20 Sertraline [Zoloft] 50 mg PO DAILY 06/12/20 06/12/20 busPIRone HCl [Buspar] 10 mg PO TID PRN 06/12/20 06/12/20 Previous Rx's Medication Instructions Recorded hydrALAZINE HCL [Apresoline] 25 mg PO TID #90 tab 06/23/20 lisinopriL [Zestril] 40 mg PO HS #30 tab 06/23/20 Allergies Allergy/AdvReac Type Severity Reaction Status Date / Time morphine Allergy Unknown Verified 07/03/20 12:40 Review of Systems ROS Statement: Those systems with pertinent positive or pertinent negative responses have been documented in the HPI. ROS Other: All systems not noted in ROS Statement are negative. Past Medical History Past Medical History: Hypertension Additional Past Medical History / Comment(s): Heart Ablation (10 years). Throat CA. History of Any Multi-Drug Resistant Organisms: None Reported Past Surgical History: Ablation, Hysterectomy Additional Past Surgical History / Comment(s): Partial colectomy (2001) for colon cancer per patient Past Psychological History: Anxiety Smoking Status: Former smoker Past Alcohol Use History: None Reported Past Drug Use History: None Reported General Exam Limitations: no limitations General appearance: alert, in no apparent distress Head exam: Present: atraumatic, normocephalic, normal inspection Eye exam: Present: normal appearance, PERRL, EOMI. Absent: scleral icterus, conjunctival injection, periorbital swelling ENT exam: Present: normal exam, mucous membranes moist, TM's normal bilaterally, normal external ear exam. Absent: normal oropharynx (irregularity of base of tongue and posterior oropharynx) Neck exam: Present: normal inspection, full ROM. Absent: tenderness, meningismus, lymphadenopathy Respiratory exam: Present: normal lung sounds bilaterally. Absent: respiratory distress, wheezes, rales, rhonchi, stridor Cardiovascular Exam: Present: regular rate, normal rhythm, normal heart sounds. Absent: systolic murmur, diastolic murmur, rubs, gallop, clicks GI/Abdominal exam: Present: soft, normal bowel sounds. Absent: distended, tenderness, guarding, rebound, rigid Neurological exam: Present: alert Course Vital Signs 07/03/20 07/03/20 07/03/20 12:35 12:40 13:40 Temperature 98.2 F Pulse Rate 71 72 70 Respiratory 18 18 18 Rate Blood Pressure 143/63 126/76 150/89 O2 Sat by Pulse 98 97 98 Oximetry 07/03/20 14:36 Temperature Pulse Rate 72 Respiratory 18 Rate Blood Pressure 135/85 O2 Sat by Pulse 98 Oximetry Medical Decision Making - Medical Decision Making Vitals are stable. Patient does not have any active bleeding on exam. CBC reveals a stable hgb. BMP was lost by lab. We did attempt to redraw blood the patient prefers to go home. I did call assisted and her nurse states that she has her own power of milieu manager. She states that she will make sure patient can follow up with ENT. Patient continues to have no active bleeding. She'll be discharged home. She'll return for any worsening symptoms. Patient's daughter did call and wanted patient admitted. She spoke with patient and patient adamantly refuses admission, wants to go home to follow up outpatient. - Lab Data Result diagrams: 07/03/20 12:53 Lab Results 07/03/20 Range/Units 12:53 WBC 10.0 (3.8-10.6) k/uL RBC 3.71 L (3.80-5.40) m/uL Hgb 11.4 (11.4-16.0) gm/dL Hct 34.5 (34.0-46.0) % MCV 93.1 (80.0-100.0) fL MCH 30.7 (25.0-35.0) pg MCHC 33.0 (31.0-37.0) g/dL RDW 14.7 (11.5-15.5) % Plt Count 644 H D (150-450) k/uL MPV 7.0 Neutrophils % 72 % Lymphocytes % 16 % Monocytes % 6 % Eosinophils % 3 % Basophils % 1 % Neutrophils # 7.2 (1.3-7.7) k/uL Lymphocytes # 1.6 (1.0-4.8) k/uL Monocytes # 0.6 (0-1.0) k/uL Eosinophils # 0.3 (0-0.7) k/uL Basophils # 0.1 (0-0.2) k/uL Disposition Clinical Impression: Bleeding from mouth, Throat mass Disposition: HOME SELF-CARE Condition: Good Instructions (If sedation given, give patient instructions): Soft Tissue Mass (ED) Additional Instructions: Please follow up with ENT. Return to the emergency room for any worsening symptoms. Is patient prescribed a controlled substance at d/c from ED?: No Referrals: David Tucker MD [Primary Care Provider] - 1-2 days Time of Disposition: 14:17
[2020-07-03 14:38] VITALS: BP 135/85; PULSE 72
== END 2020-07-03 15:15 | disposition home or self-care (01) ==
LOC: EC 12:31
DX: R11.10 Vomiting, unspecified (principal); R22.0 Localized swelling, mass and lump, head; F41.9 Anxiety disorder, unspecified; I10 Essential (primary) hypertension; Z79.899 Other long term (current) drug therapy; Z85.038 Personal history of other malignant neoplasm of large intestine; Z87.891 Personal history of nicotine dependence
CPT/HCPCS: 36415; 85025; 99284

== ENCOUNTER 2020-07-07 20:02 | Observation (INO) | payer MEDICARE ==
--- NOTE | 2020-07-07 21:01 | ED ---
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 Apparently the patient coughed up approximately 50 mL of bright red blood. She states that this has happened a few times. She was seen in the emergency department with similar episode within the past week. At that time the patient preferred to be discharged home without further evaluation treatment. She states the bleeding has stopped. She denies chest pain or dyspnea. Denies cough. She does have difficulty swallowing but currently has a PEG tube. - Related Data Home Medications Medication Instructions Recorded Confirmed Metoprolol Succinate (ER) [Toprol 50 mg PO DAILY@59906/12/20 07/07/20 XL] OLANZapine [ZyPREXA] 5 mg PO DAILY@199906/12/20 07/07/20 Sertraline [Zoloft] 50 mg PO DAILY@59906/12/20 07/07/20 busPIRone HCl [Buspar] 10 mg PO TID PRN 06/12/20 07/07/20 HYDROcodone/APAP [[place] Elixir 15 ml PO Q6HR PRN 07/07/20 07/07/20 7.5-325Mg/15Ml] hydrALAZINE HCL [Apresoline] 25 mg PO TID@0500,1300,2100 07/07/20 07/07/20 lisinopriL [Zestril] 40 mg PO HS@199907/07/20 07/07/20 Allergies Allergy/AdvReac Type Severity Reaction Status Date / Time morphine Allergy Unknown Verified 07/07/20 21:03 Review of Systems ROS Statement: Those systems with pertinent positive or pertinent negative responses have been documented in the HPI. ROS Other: All systems not noted in ROS Statement are negative. Past Medical History Past Medical History: Cancer, Hypertension Additional Past Medical History / Comment(s): Heart Ablation (10 years). Throat CA. History of Any Multi-Drug Resistant Organisms: None Reported Past Surgical History: Ablation, Hysterectomy Additional Past Surgical History / Comment(s): Partial colectomy (2001) for colon cancer per patient Past Psychological History: Anxiety Smoking Status: Former smoker Past Alcohol Use History: None Reported Past Drug Use History: None Reported General Exam Limitations: no limitations General appearance: alert, in no apparent distress Head exam: Present: atraumatic, normocephalic Eye exam: Present: normal appearance, PERRL Neck exam: Present: lymphadenopathy Respiratory exam: Present: normal lung sounds bilaterally, other (muffled voice). Absent: respiratory distress, wheezes Cardiovascular Exam: Present: regular rate, normal rhythm GI/Abdominal exam: Present: soft. Absent: distended, tenderness, guarding Extremities exam: Present: normal inspection, normal capillary refill. Absent: pedal edema Neurological exam: Present: alert, oriented X3. Absent: motor sensory deficit Psychiatric exam: Present: normal affect, normal mood Skin exam: Present: warm, dry, intact. Absent: cyanosis, diaphoretic Course Vital Signs 07/07/20 07/07/20 20:16 22:20 Temperature 98.3 F Pulse Rate 73 82 Respiratory 16 18 Rate Blood Pressure 128/85 149/87 O2 Sat by Pulse 96 95 Oximetry Medical Decision Making - Medical Decision Making 80-year-old female presenting for suspected bleeding from a known tongue mass. Patient is unable to give detailed history. There is no visualized bleeding. Patient is not in any respiratory distress. No cough. Lungs are clear, vitals are stable. Hemoglobin is stable. I discussed case with Dr. Tucker who believes that the patient is scheduled for outpatient evaluation and treatment. Patient will be monitored in observation, including repeat hemoglobin. Both oncology and ENT surgery will be placed on consult. - Lab Data Result diagrams: 07/07/20 21:07 07/07/20 21:07 Lab Results 07/07/20 07/07/20 07/07/20 Range/Units 21:07 21:07 21:07 WBC 9.9 (3.8-10.6) k/uL RBC 3.69 L (3.80-5.40) m/uL Hgb 11.5 (11.4-16.0) gm/dL Hct 34.6 (34.0-46.0) % MCV 93.8 (80.0-100.0) fL MCH 31.1 (25.0-35.0) pg MCHC 33.1 (31.0-37.0) g/dL RDW 14.5 (11.5-15.5) % Plt Count 476 H (150-450) k/uL MPV 7.2 Neutrophils % 66 % Lymphocytes % 18 % Monocytes % 9 % Eosinophils % 4 % Basophils % 1 % Neutrophils # 6.5 (1.3-7.7) k/uL Lymphocytes # 1.8 (1.0-4.8) k/uL Monocytes # 0.9 (0-1.0) k/uL Eosinophils # 0.4 (0-0.7) k/uL Basophils # 0.1 (0-0.2) k/uL PT 10.7 (9.0-12.0) sec INR 1.0 (<1.2) APTT 23.7 (22.0-30.0) sec Sodium 136 L (137-145) mmol/L Potassium 5.0 (3.5-5.1) mmol/L Chloride 95 L (98-107) mmol/L Carbon Dioxide 29 (22-30) mmol/L Anion Gap 12 mmol/L BUN 40 H (7-17) mg/dL Creatinine 1.16 H (0.52-1.04) mg/dL Est GFR (CKD-EPI)AfAm 52 (>60 ml/min/1.73 sqM) Est GFR (CKD-EPI)NonAf 45 (>60 ml/min/1.73 sqM) Glucose 103 H (74-99) mg/dL Calcium 10.4 H (8.4-10.2) mg/dL Magnesium 2.1 (1.6-2.3) mg/dL Disposition Clinical Impression: Bleeding from mouth, Oral mass, Cervical lymphadenopathy Disposition: ADMITTED IP TO THIS HOSP Condition: Stable Is patient prescribed a controlled substance at d/c from ED?: No Referrals: David Tucker MD [Primary Care Provider] - 1-2 days Time of Disposition: 22:41
[2020-07-07 21:20] LABS: Basophils # (A) 0.1 k/uL (0-0.2); Basophils % (A) 1 %; Eosinophils # (A) 0.4 k/uL (0-0.7); Eosinophils % (A) 4 %; HCT 34.6 % (34.0-46.0); HGB 11.5 gm/dL (11.4-16.0); Lymphocytes # (A) 1.8 k/uL (1.0-4.8); Lymphocytes % (A) 18 %; MCH 31.1 pg (25.0-35.0); MCHC 33.1 g/dL (31.0-37.0); MCV 93.8 fL (80.0-100.0); Mean Platelet Volume 7.2; Monocytes # (A) 0.9 k/uL (0-1.0); Monocytes % (A) 9 %; Neutrophils # (A) 6.5 k/uL (1.3-7.7); Neutrophils % (A) 66 %; Platelet Count 476 k/uL (150-450); RBC 3.69 m/uL (3.80-5.40); RDW 14.5 % (11.5-15.5); WBC 9.9 k/uL (3.8-10.6)
[2020-07-07 21:30] LABS: Calcium 10.4 mg/dL (8.4-10.2); Magnesium 2.1 mg/dL (1.6-2.3)
[2020-07-07 21:35] LABS: Partial Thromboplastin Time 23.7 sec (22.0-30.0); Prothrombin Time 10.7 sec (9.0-12.0)
[2020-07-07] MEDS ORDERED: NALOXONE 0.4 MG/ML 1 ML VIAL IV PRN (22:32)
[2020-07-07] MEDS ORDERED: LORazepam 2 MG/ML INJ IV STA (23:50)
[2020-07-08] MEDS: SODIUM CHLORIDE 0.9% 1,000 ML IV SCH ×2 (06:08→20:00)
[2020-07-08 11:07] VITALS: BMI 16.9
[2020-07-08 11:10] LABS: Basophils # (A) 0.1 k/uL (0-0.2); Basophils % (A) 1 %; Eosinophils # (A) 0.6 k/uL (0-0.7); Eosinophils % (A) 7 %; HCT 33.6 % (34.0-46.0); Lymphocytes # (A) 1.9 k/uL (1.0-4.8); Lymphocytes % (A) 21 %; MCH 31.3 pg (25.0-35.0); MCHC 32.7 g/dL (31.0-37.0); MCV 95.6 fL (80.0-100.0); Mean Platelet Volume 7.5; Monocytes # (A) 0.8 k/uL (0-1.0); Monocytes % (A) 9 %; Neutrophils # (A) 5.4 k/uL (1.3-7.7); Neutrophils % (A) 61 %; Platelet Count 425 k/uL (150-450); RBC 3.52 m/uL (3.80-5.40); RDW 14.6 % (11.5-15.5)
[2020-07-08] MEDS: hydrALAZINE HCL 25 MG TAB PO SCH ×2 (12:16→20:00)
[2020-07-08] MEDS: SERTRALINE 50 MG TAB PO SCH (12:16)
[2020-07-08] MEDS: METOPROLOL SUCCINATE (ER) 50 MG TAB.ER.24H PO SCH (12:16)
[2020-07-08] MEDS: HYDROcodone/APAP 15 ML SOLUTION PO PRN ×2 (13:11→19:50)
--- NOTE | 2020-07-08 17:39 | P.CONS ---
History of Present Illness - Reason for Consult Consult date: 07/08/20 mass in throat Requesting physician: John Rodriguez - Chief Complaint dysphagia - History of Present Illness The patient is a 80-year-old female with a recent history of inability to eat secondary to food getting stuck in the back of her throat and voice changes. He r initial workup is highly suspicious for a base of tongue cancer with bilateral cervical adenopathy. The patient was undergoing workup by Dr. Moore as an outpatient and underwent FNA of the left neck mass. The pathology was non-diagnostic and plan was to follow-up with ENT as outpatient to repeat. The patient was sent to the ER for further workup. On June [address] scan of the neck which revealed a 1.8 cm base of tongue mass on the right, with a 3 cm left level II lymph node, and several smaller right cervical lymph nodes appearing suspicious. As she was unable to take food by mouth the patient stated she has lost significant weight. She had a PEG tube placed on June 15. She underwent a CT scan of the chest, abdomen and pelvis on June 18 to evaluate for distant disease. This revealed no evidence of distant metastasis, however there was note made of a 3 cm density in the retroperitoneum on the right and there was some concern for retained surgical material. The patient appears to be a somewhat poor historian. She noted that she has had difficulty eating for the past couple weeks. She states she has had significant weight loss. She states she is able to drink fluids, but any food gets caught in the back of her throat and she throws it up. She states that one evening she did cough up a small amount of blood. She reports no significant pain in her throat at this time. She states ENT told her he would perform surgery in the hospital and therefore she came in, although this is questioned as we discussed potentially sending to tertiary center at the request of ENT. Will await ENT recommendations at this time. Past Medical History Past Medical History: Cancer, Hypertension Additional Past Medical History / Comment(s): Heart Ablation (10 years). Throat CA. History of Any Multi-Drug Resistant Organisms: None Reported Past Surgical History: Ablation, Hysterectomy Additional Past Surgical History / Comment(s): Partial colectomy (2001) for colon cancer per patient Past Psychological History: Anxiety Smoking Status: Former smoker Past Alcohol Use History: None Reported Past Drug Use History: None Reported Medications and Allergies Home Medications Medication Instructions Recorded Confirmed Type Metoprolol Succinate (ER) [Toprol 50 mg PO DAILY@59906/12/20 07/07/20 History XL] OLANZapine [ZyPREXA] 5 mg PO DAILY@199906/12/20 07/07/20 History Sertraline [Zoloft] 50 mg PO DAILY@0600 06/12/20 07/07/20 History busPIRone HCl [Buspar] 10 mg PO TID PRN 06/12/20 07/07/20 History HYDROcodone/APAP [[place] Elixir 15 ml PO Q6HR PRN 07/07/20 07/07/20 History 7.5-325Mg/15Ml] hydrALAZINE HCL [Apresoline] 25 mg PO TID@0500,1300,2100 07/07/20 07/07/20 History lisinopriL [Zestril] 40 mg PO HS@199907/07/20 07/07/20 History Allergies Allergy/AdvReac Type Severity Reaction Status Date / Time morphine Allergy Unknown Verified 07/07/20 21:03 Physical Exam Vitals: Vital Signs Temp Pulse Pulse Resp BP BP BP 07/08/20 15:53 97.5 F L 61 18 149/65 07/08/20 12:49 98.7 F 77 18 135/71 07/08/20 11:42 65 07/08/20 08:09 98.9 F 65 15 108/64 07/08/20 04:15 97.6 F 70 18 113/69 07/08/20 02:15 97.7 F 72 16 132/73 07/08/20 00:45 80 18 138/80 07/07/20 22:20 82 18 149/87 07/07/20 21:30 18 07/07/20 20:16 98.3 F 73 16 128/85 Pulse Ox 07/08/20 15:53 97 07/08/20 12:49 96 07/08/20 11:42 07/08/20 08:09 07/08/20 04:15 97 07/08/20 02:15 95 07/08/20 00:45 98 07/07/20 22:20 95 07/07/20 21:30 07/07/20 20:16 96 Intake and Output 03/07/08/20 07/08/20 06:59 14:59 22:59 Other: Voiding Method Toilet Diaper # Voids 1 1 Weight 46.266 kg 49.5 kg Gen: No acute distress. HEENT: Mucosa moist Neck: Supple Lymph: Left [address] palpable, mobile and nontender. Lungs: No respiratory distress Heart: Regular rate Abd: Soft MSK: appropriate strength in all 4 extremities Neuro: Alert and oriented x3 Psych: Appropriate affect Results CBC & Chem 7: 07/08/20 10:20 07/07/20 21:07 Labs: Abnormal Lab Results - Last 24 Hours (Table) 07/07/20 07/07/20 07/08/20 Range/Units 21:07 21:07 10:20 RBC 3.69 L 3.52 L (3.80-5.40) m/uL Hgb 11.0 L (11.4-16.0) gm/dL Hct 33.6 L (34.0-46.0) % Plt Count 476 H (150-450) k/uL Sodium 136 L (137-145) mmol/L Chloride 95 L (98-107) mmol/L BUN 40 H (7-17) mg/dL Creatinine 1.16 H (0.52-1.04) mg/dL Glucose 103 H (74-99) mg/dL Calcium 10.4 H (8.4-10.2) mg/dL Assessment and Plan Plan: Assessment and Plan Assessment: 1. Base of tongue mass 2. Renal dysfunction, unknown if acute vs chronic as no baseline Plan: Neck Mass: Biopsy on 06/12/20 - Non-diagnostic and a repeat tissue biopsy will be required.Since the mass is unable to be palpated she will need to return to ENT for this. PLease set up this biopsy prior to discharge since she will likely require rehab in the interim. She still needs PET scan as outpatient for adenopathy on CTs. She was recently discharged and was to undergo therapy although has now represented statuing she is here for surgery? Consult ENT for further clarity on plan Peg tube placed and continue feedings as toelrated Physician Attest: I have completed the full history and physical and agree with above dictation, dictated as a scribe.
[2020-07-08] MEDS ORDERED: lisinopriL 20 MG TAB PO SCH (20:00)
[2020-07-08] MEDS ORDERED: OLANZapine 5 MG TAB PO SCH (20:00)
--- NOTE | 2020-07-09 05:44 | CONS ---
CONSULTATION DATE OF CONSULTATION: 07/08/2020 REASON FOR CONSULTATION: Bleeding from the oropharynx. HISTORY OF PRESENT ILLNESS: The patient is a very pleasant 80-year-old female who was admitted via the emergency room department for evaluation and control of bleeding from the mouth. 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 The patient states that she sees a ENT physician in [place] and that the area has been biopsied, but that the biopsy was apparently inconclusive. However, it was felt that this most likely represents a carcinoma and apparently the plan is for the patient to undergo surgery on Monday of this week. She is scheduled to undergo a tracheostomy under general anesthesia and at the same time, her ENT physician in [facility] plans on possibly re- biopsying the site. I explained to her that it is routine to do a tracheostomy on patients with significant base of tongue lesions in anticipation of radiation. During the period of radiation, there is significant inflammation, swelling, and potential compromise of the patient's airway. This patient is already having significant difficulty swallowing because of pain as well as most likely because of the tumor. Generally, base of tongue carcinomas tend to significantly interfere with swallowing, more so than those that are located more anteriorly. In addition to this, she has a somewhat gravelly voice, but she states that she is not having any difficulty breathing. I explained to the patient that once she has completed her radiation and at some point, she will most likely be scoped and once they feel that her upper airway is adequate and that there is no significant swelling in the laryngeal area then the trach is very easily removed and the tracheostomy site generally heals/closes in 3-5 days. In addition to this, because most base of tongue lesions are known to have bilateral metastasis, whether they are evident on CT scan or by palpation or not, she will most likely be treated for bilateral neck disease which means she will have a significant dose of radiation. I advised her that the radiology-oncologist will go over the treatment with her, as well as potential side effects. In addition to this, I would anticipate that they would give her inductive chemotherapy which is pretty standard for treating base of tongue carcinomas. The patient states that she came to the emergency room because she had some bleeding. She states that she spit up a half of a coffee cup of blood/blood clots. At the time that she was seen in the emergency room, however, there was no active bleeding and the patient initially refused to be admitted to the hospital. However, she went home and once again started bleeding and then when she came back, she agreed to be admitted to the hospital for treatment and observation. She has history of smoking at least a pack of cigarettes per day, which she states that she quit approximately a year ago. She thinks that her symptoms began over 6 months ago. She is complaining of having pain mainly in her left ear and somewhat in the right ear. She is able to handle her secretions. A PEG feeding tube was put in place on her last hospital visit. ALLERGIES: MORPHINE. MEDICATIONS: Her current home medications include Buspar, Zoloft, Zyprexa, Toprol XL, Apresoline, Zestril. REVIEW OF SYSTEMS: Cardiovascular is positive for hypertension and ASHD. Respiratory is negative. Gastrointestinal is negative. Metabolic, endocrine and the remainder of the review of systems is essentially unremarkable. PHYSICAL EXAMINATION: Patient is a 80-year-old female who is alert, cooperative and appears to be satisfactorily oriented to time and place. I find her to be a fair historian. HEENT: Patient is normocephalic. Tympanic membranes are normal. Middle ear space is free of any fluid or infection. Pupils equal, round, react to light and accommodation. Sclerae are clear. Extraocular movements are within normal limits. Intranasal examination reveals moderate to severe septal deviation to the left with bilateral compensatory hypertrophy of the inferior turbinates and a significant amount of thin mucus on the mucous membranes and draining down the posterior pharynx. Examination of the oropharynx is limited in that I avoided doing any deep palpation of the back of the throat out of concern of instigating any more bleeding. However, on observation, one can see that there appears to be a significant base of tongue lesion posteriorly, mainly on the left, but possibly extending over to the right side also. I do not see any significant lesions on the anterior portion of the tongue or floor of the mouth or involving the tonsils, posterior pharynx,or soft palate. Bilateral palpation of neck reveals the patient has multiple lymphadenopathy on the right side that are greater than 1 cm and on the left side, there is a large lymph node, which appears to be approximately 2 cm in size( this most likely represents a group of matted lymph nodes) as well as other lymphadenopathy noted along the anterior jugular chain bilaterally. The lymphadenopathy that was noted is well-circumscribed, nonmobile, nontender and nonfluctuant. That is to say these masses are fixed. Cranial nerves 2-12 and the remainder of the head and neck exam is unremarkable. CHEST AND CARDIOVASCULAR: Both lung yoder are clear though lung sounds are somewhat distant at the bases. There are no wheezes, rhonchi, or rales noted. The patient is in regular sinus rhythm S1, S2 is present without evidence any murmurs S3 or S4. ABDOMEN: There is no evident masses, megaly or tenderness. The abdomen is soft. The remainder of physical exam is unremarkable. ASSESSMENT: 1. Base of tongue mass (most likely left base of tongue with extension possibly to the right side). 2. 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 3. Hemoptysis secondary to erosion into some of the small vessels of the base of tongue by the carcinoma. PLAN: At this point, I do not think any type of surgical intervention is necessary to control her bleeding. It is quite common for these type of patients with large, bulky base of tongue lesions to have intermittent bleeding because the carcinoma tends to erode into some of the smaller blood vessels. It rarely erodes into any major blood vessels, however, the bleeding can be somewhat worrisome and I did advise the patient if this occurs again at home, she can try sucking on ice cubes gargling with ice water if she can do so without choking. It is not possible to cauterize these areas because when trying to do so you simply opened up further bleeding sites. All of the patient's questions were answered regarding her lesion and I have defer to her to her ENT physician in [place] for any further answers and advised her that both her ENT physician and radiology-oncologist will answer any other questions that she would have regarding her treatment, prognosis, etc. Needless to say, patients with base of tongue lesions with bilateral neck metastasis generally have a poor prognosis. I urged her to avoid smoking and also to avoid being around secondhand smoke, especially once she completes her treatment. I advised her that the reason for this is that certainly it is well known that the patients who undergo successful treatment and continue to smoker, or continue to be exposed to secondhand smoke, those patients tend to have the cancers return within 1-2 years. Finally, at this point, I feel it is appropriate for the patient to continue with her surgery on Monday, although I would recommend that we try to transfer her to [facility](or wherever her surgery is planned) on . According to her,the tracheostomy surgery is scheduled for 5:00 am on Monday. I am not sure whether this is the correct time, but I would imagine that surgery will be scheduled in the morning and certainly if she is transferred to the hospital on Monday, there could be problems with traffic getting her to the hospital. This might delay her getting to the hospital, which might cause her surgery to be canceled. So for practical reasons, my recommendation is that she be transferred on by contacting her ENT doctor in [place]. I think this would be better than trying to transfer this lady in the middle of the night/morning to the hospital. I want to take this opportunity to thank you for allowing me to assist in the care of your patient. If I could be of any further assistance, please feel free to call my office. GALINA / LEONARDA: [phone] / PERICO
[2020-07-09] MEDS: SERTRALINE 50 MG TAB PO SCH (05:58)
[2020-07-09] MEDS: hydrALAZINE HCL 25 MG TAB PO SCH ×2 (05:58→15:03)
[2020-07-09] MEDS: METOPROLOL SUCCINATE (ER) 50 MG TAB.ER.24H PO SCH (05:58)
[2020-07-09] MEDS: HYDROcodone/APAP 15 ML SOLUTION PO PRN ×2 (06:04→12:10)
[2020-07-09 13:31] VITALS: BP 144/70; PULSE 66; RESP 16; TEMP 97.6
--- NOTE | 2020-07-09 14:39 | DS ---
DISCHARGE SUMMARY CHIEF COMPLAINT: Blood spitting. HISTORY OF PRESENT ILLNESS AND PHYSICAL EXAM: Details of this lady's history and physical can be found in the initial workup. LABORATORY STUDIES: While she was in a hospital she had laboratory studies, details of which can be found in the laboratory section of her chart. COURSE IN THE HOSPITAL: After admission she was placed on bed rest and she had no further bleeding. She was to be seen by ENT and Oncology. During the course of her stay, apparently a surgical procedure was scheduled in [facility]. She will be discharged back to the senior living on her usual medications and tube feeding and surgery will be carried out as scheduled on the . FINAL DIAGNOSIS: Metastatic carcinoma at base of the tongue. OPERATIONS: None. CONSULTATIONS: ENT and Oncology. She is improved. MMODL / IJN: [id number] /
[2020-07-09] MEDS: SODIUM CHLORIDE 0.9% 1,000 ML IV SCH (15:04)
== END 2020-07-09 15:40 ==
LOC: EC 20:02 → 5NMEDONC 22:35
PROVIDERS: ADMIT Family Medicine; ATTEND Family Medicine
DX: C01 Malignant neoplasm of base of tongue (principal); R04.2 Hemoptysis; R13.10 Dysphagia, unspecified; R59.0 Localized enlarged lymph nodes; C79.89 Secondary malignant neoplasm of other specified sites; Z93.1 Gastrostomy status; R63.4 Abnormal weight loss; I10 Essential (primary) hypertension; F41.9 Anxiety disorder, unspecified; I25.10 Atherosclerotic heart disease of native coronary artery without angina pectoris; N28.9 Disorder of kidney and ureter, unspecified; Z87.891 Personal history of nicotine dependence; Z85.038 Personal history of other malignant neoplasm of large intestine; Z85.819 Personal history of malignant neoplasm of unspecified site of lip, oral cavity, and pharynx; Z79.899 Other long term (current) drug therapy; Z79.891 Long term (current) use of opiate analgesic; Z88.5 Allergy status to narcotic agent; Z90.49 Acquired absence of other specified parts of digestive tract; Z90.710 Acquired absence of both cervix and uterus; Z20.822 Contact with and (suspected) exposure to COVID-19; Z68.1 Body mass index [BMI] 19.9 or less, adult
CPT/HCPCS: 96374; 99285; 36415; 80048; 83735; 85025 ×2; 85610; 85730; 87635; G0378 ×3; J2060

== ENCOUNTER 2020-10-31 12:02 | Emergency (ER) | payer MEDICARE ==
[2020-10-31 12:08] VITALS: RESP 18
--- NOTE | 2020-10-31 12:54 | ED ---
General Adult HPI - General Chief complaint: Recheck/Abnormal Lab/Rx Stated complaint: trach replacement Time Seen by Provider: 10/31/20 12:05 Source: EMS Mode of arrival: EMS Limitations: no limitations - History of Present Illness Initial comments: 80 year old female past medical history of base of tongue cancer who presents to the emergency department from [facility]. Patient is status post trach and PEG. It is reported from [facility] that the patient pulled out her trach earlier this morning. Patient is a poor historian and therefore cannot provide any history. She frequently plays with the trach. Nurse reports trach was in place at 6:30 am this morning and when she checked on the patient at 11, the trach was out. She is normally on 3 L via trach collar at all times. Currently undergoing radiation treatments. Nursing staff states that the trach was placed on July 10 of this year at [facility]. Surgeon is unknown. No reported bleeding from the site. The patient presents without signs of respiratory distress. Remainder of the HPI is limited as the patient cannot provide history - Related Data Home Medications Medication Instructions Recorded Confirmed Metoprolol Succinate (ER) [Toprol 50 mg PO DAILY@59906/12/20 07/07/20 XL] OLANZapine [ZyPREXA] 5 mg PO DAILY@199906/12/20 07/07/20 Sertraline [Zoloft] 50 mg PO DAILY@59906/12/20 07/07/20 busPIRone HCl [Buspar] 10 mg PO TID PRN 06/12/20 07/07/20 HYDROcodone/APAP [[place] Elixir 15 ml PO Q6HR PRN 07/07/20 07/07/20 7.5-325Mg/15Ml] hydrALAZINE HCL [Apresoline] 25 mg PO TID@0500,1300,2100 07/07/20 07/07/20 lisinopriL [Zestril] 40 mg PO HS@199907/07/20 07/07/20 Allergies Allergy/AdvReac Type Severity Reaction Status Date / Time morphine Allergy Unknown Verified 10/31/20 12:08 Review of Systems ROS Statement: Those systems with pertinent positive or pertinent negative responses have been documented in the HPI. ROS Other: All systems not noted in ROS Statement are negative. Past Medical History Past Medical History: Cancer, Hypertension Additional Past Medical History / Comment(s): Heart Ablation (10 years). Throat CA. History of Any Multi-Drug Resistant Organisms: None Reported Past Surgical History: Ablation, Hysterectomy Additional Past Surgical History / Comment(s): Partial colectomy (2001) for colon cancer per patient Past Psychological History: Anxiety Smoking Status: Former smoker Past Alcohol Use History: None Reported Past Drug Use History: None Reported General Exam Limitations: altered mental status (poor historian) General appearance: alert, in no apparent distress Head exam: Present: atraumatic, normocephalic, normal inspection ENT exam: Present: mucous membranes dry, other (pinpoint stoma opening. no active bleeding. Hoarse but present voice ) Respiratory exam: Present: normal lung sounds bilaterally. Absent: respiratory distress, wheezes, rales, rhonchi, stridor Cardiovascular Exam: Present: normal rhythm, bradycardia GI/Abdominal exam: Present: soft, normal bowel sounds, other (peg tube). Absent: distended, tenderness, guarding, rebound, rigid Neurological exam: Present: alert Course Vital Signs 10/31/20 12:03 Temperature 98 F Pulse Rate 56 L Respiratory 18 Rate Blood Pressure 128/70 O2 Sat by Pulse 90 L Oximetry Medical Decision Making - Medical Decision Making Upon arrival patient is placed into trauma 2. No signs of respiratory distress. I called [facility] for further history as patient is confused about trach details - time/place of procedure. A 6-[place] trach is attempted to be passed by respiratory staff x 2. Patient has significant discomfort with procedure and trach unable to be passed. Trach placement attempted by myself. Patient continues to have significant discomfort. A small portion of bleeding is noted. Because of this difficulty and did call on-call ENT Dr. Deutsch at 1:20 pm. Recommends transfer to ENT surgeon who did procedure at [facility]. Called and spoke with Dr. Viveros who agreed to transfer at [facility]. Patient is awaiting EMS transfer in stable condition Disposition Clinical Impression: Tongue mass, Tracheostomy complication Disposition: OTHER INSTITUTION NOT DEFINED Condition: Stable Is patient prescribed a controlled substance at d/c from ED?: No Referrals: David Tucker MD [Primary Care Provider] - 1-2 days - Out of Hospital Transfer - Req. Specs Out of Hospital Transfer - Requested Specifics: Other Emergency Center ([facility])
[2020-10-31 14:22] VITALS: BP 129/82; PULSE 62; TEMP 98.2
== END 2020-10-31 14:44 | disposition other institution (70) ==
LOC: EC 12:02
DX: J95.00 Unspecified tracheostomy complication (principal); K14.8 Other diseases of tongue; I10 Essential (primary) hypertension; F41.9 Anxiety disorder, unspecified; Z79.891 Long term (current) use of opiate analgesic; Z79.899 Other long term (current) drug therapy; Z87.891 Personal history of nicotine dependence
CPT/HCPCS: 99283

== ENCOUNTER → 2020-11-19 | Outpatient (CLI) | payer MEDICARE ==
--- NOTE | 2020-11-19 14:04 | CT ---
EXAMINATION TYPE: CT neck chest w con DATE OF EXAM: 11/19/2020 COMPARISON: 06/12/2020 HISTORY: Malignant neoplasm unspecified parts of tongue CT DLP: 717 mGycm CONTRAST: Patient injected with 100 mL of Isovue 300. TECHNIQUE: Axial images at 3 mm thick sections. Reconstructed images in the coronal plane and sagitt al plane are reviewed. FINDINGS: Limited CT sections are obtained the lung apices. The lung apices appear clear. Tracheosto my tube is in the midline. CT neck: The torus tubarius and fossa of Rosenmuller are normal. Header Up spaces are normal. Para nasal sinuses and mastoid air cells are clear. There is asymmetry within the tongue with greater tissue on the right compared to the left. This exte nds towards the hypopharynx. This appears hypodense in relation to the prior comparison. Parotid glands appear normal and symmetrical. Submandibular glands, are normal. Parapharyngeal spac es are normal. No suspicious adenopathy is evident. The hypopharynx appears within normal limits. Vocal cord level appear symmetrical. Thyroid as visualized is normal. Osseous structures are normal. IMPRESSIONS: 1. Asymmetric tongue with larger posterior right aspect compared to left. 2. Tracheostomy tube and midline. EXAMINATION TYPE: CT neck chest w con DATE OF EXAM: 11/19/2020 COMPARISON: 06/18/2020 HISTORY: Malignant neoplasm unspecified parts of tongue CT DLP: 717 mGycm, Automated exposure control for dose reduction was used. CONTRAST: Performed injected with 100 mL of Isovue 300. TECHNIQUE: Axial images were obtained at 5 mm thick sections. Reconstructed images are reviewed on [employer] computer in the coronal plane. FINDINGS: Portion of the thyroid visualized is normal. Tracheostomy tube is in the midline. No enlarged mediastinal or hilar adenopathy is evident. The ascending aorta diameter at the level o f the main pulmonary artery is 3.2 cm. The main pulmonary artery diameter at the bifurcation is 3. c m. Limited CT sections are obtained through the upper abdomen. Abdomen is essentially unremarkable. IMPRESSIONS: 1. No acute pulmonary process. 2. Tracheostomy tube in the midline.
--- NOTE | 2020-11-19 14:12 | FL ---
EXAMINATION TYPE: FL barium swallow w video DATE OF EXAM: 11/19/2020 COMPARISON: NONE HISTORY: Tongue cancer TECHNIQUE: Fluoroscopy. FINDINGS: Fluoroscopic guidance was provided for the procedure performed in conjunction with the [facility] pathology department. Please see complete report forthcoming from the Speech Pathology departmen t. Various consistencies from thin liquid to solids were administered. Fluoroscopy time 2 minutes 15 seconds. Number of images: 0. Transient penetration was present with thin liquids to any thick liquids. Penetration was not identif ied with semisoft solids. Pooling was present within the vallecula. This could be cleared with fluids. There is free spill of the fluids through the hypopharynx. Note is made of asymmetry of the tongue. IMPRESSION: 1. Transient penetration 2 multiple liquids. No aspiration was evident during the exam.
== END | disposition home or self-care (01) ==
LOC: RADCTMAIN 09:52
PROVIDERS: ATTEND Otolaryngology
DX: C02.9 Malignant neoplasm of tongue, unspecified (principal); Z93.0 Tracheostomy status
CPT/HCPCS: 92611; 82565; 84520; 74230; 70491; 71260; 36415; Q9967

== ENCOUNTER 2020-12-04 13:57 | Emergency (ER) | payer MEDICARE ==
[2020-12-04 14:06] VITALS: TEMP 98
[2020-12-04] MEDS ORDERED: LIDOCAINE URO-JET JELLY 2% 5 ML KIT URETHRAL ONE (15:23)
--- NOTE | 2020-12-04 15:38 | ED ---
General Adult HPI <Felipe Coker - Last Filed: 12/04/20 15:58> - General Source: EMS, RN notes reviewed, old records reviewed Mode of arrival: EMS Limitations: language barrier, physical limitation - History of Present Illness Severity scale (1-10): 0 Associated Symptoms: denies other symptoms Treatments Prior to Arrival: none <Pedro Luis Phillips - Last Filed: 12/04/20 16:31> - General Chief complaint: Recheck/Abnormal Lab/Rx Stated complaint: pulled NG tube and trach - History of Present Illness Initial comments: Patient sent from [facility] for PEG tube and trach replacement. Per nurse, patient pulled her own tubes out but unknown when. She is in no distress and complains of no pain. The tubes were not sent with the patient, called and spoke with the nurse who stated she will look for the tubes but it appears that they have been thrown out. (Pedro Luis Phillips) - Related Data Home Medications Medication Instructions Recorded Confirmed Metoprolol Succinate (ER) [Toprol 50 mg PEG/G-TUBE DAILY 06/12/20 12/04/20 XL] busPIRone HCl [Buspar] 10 mg PEG/G-TUBE TID@0500,1300,2100 06/12/20 12/04/20 HYDROcodone/APAP [[place] Elixir 15 ml PEG/G-TUBE Q4H PRN 07/07/20 12/04/20 7.5-325Mg/15Ml] Acetaminophen [Acetaminophen Oral 650 mg PEG/G-TUBE Q6H PRN 12/04/20 12/04/20 Soln] Albuterol Nebulized [Ventolin 2.5 mg INHALATION RT-QID PRN 12/04/20 12/04/20 Nebulized] Atorvastatin [Lipitor] 40 mg PEG/G-TUBE HS 12/04/20 12/04/20 Ferrous Sulfate Oral Elixir 300 mg PEG/G-TUBE BID 12/04/20 12/04/20 [Feosol Liquid] Lidocaine Viscous 2% [Xylocaine 15 ml PO ACHS@07,11,16,20 12/04/20 12/04/20 Viscous] Melatonin 3 mg PEG/G-TUBE HS 12/04/20 12/04/20 Multivitamins, Thera Liquid 5 ml PEG/G-TUBE HS 12/04/20 12/04/20 [Theragran Liquid (formulary)] OLANZapine ODT [ZyPREXA ZYDIS] 5 mg PEG/G-TUBE HS 12/04/20 12/04/20 amLODIPine [Norvasc] 5 mg PEG/G-TUBE DAILY 12/04/20 12/04/20 fentaNYL 25MCG/HR PATCH [Duragesic 1 patch TRANSDERM Q72H 12/04/20 12/04/20 25MCG/HR] Allergies Allergy/AdvReac Type Severity Reaction Status Date / Time morphine Allergy Unknown Verified 12/04/20 15:00 trazodone Allergy Unknown Verified 12/04/20 15:00 Review of Systems ROS Other: All systems not noted in ROS Statement are negative. <Felipe Coker - Last Filed: 12/04/20 15:58> ROS Other: All systems not noted in ROS Statement are negative. <Pedro Luis Phillips - Last Filed: 12/04/20 16:31> ROS Statement: Those systems with pertinent positive or pertinent negative responses have been documented in the HPI. Past Medical History Past Medical History: Cancer, Hypertension Additional Past Medical History / Comment(s): Heart Ablation (10 years). Throat CA. History of Any Multi-Drug Resistant Organisms: None Reported Past Surgical History: Ablation, Hysterectomy Additional Past Surgical History / Comment(s): Partial colectomy (2001) for colon cancer per patient Past Psychological History: Anxiety Smoking Status: Former smoker Past Alcohol Use History: None Reported Past Drug Use History: None Reported <Pedro Luis Phillips - Last Filed: 12/04/20 16:31> General Exam Limitations: language barrier, physical limitation General appearance: alert, in no apparent distress Head exam: Present: atraumatic, normocephalic, normal inspection Eye exam: Present: normal appearance, PERRL, EOMI. Absent: scleral icterus, conjunctival injection, periorbital swelling ENT exam: Present: normal exam, mucous membranes moist Neck exam: Present: other (Tracheostomy with no erythema or bleeding) Respiratory exam: Present: normal lung sounds bilaterally. Absent: respiratory distress, wheezes, rales, rhonchi, stridor Cardiovascular Exam: Present: regular rate GI/Abdominal exam: Present: soft, normal bowel sounds, other (PEG tube site without redness or bleeding). Absent: distended, tenderness, guarding, rebound, rigid Neurological exam: Present: alert Psychiatric exam: Present: normal affect, normal mood Skin exam: Present: warm, dry, intact, normal color. Absent: rash <Pedro Luis Phillips - Last Filed: 12/04/20 16:31> Course Vital Signs 12/04/20 12/04/20 14:03 15:28 Temperature 98.0 F Pulse Rate 72 105 H Respiratory 18 20 Rate Blood Pressure 138/83 132/72 O2 Sat by Pulse 100 95 Oximetry Procedures - Feeding Tube Replacement Reason for Replacement: patient removed/pulled out Initial Tube Inserted: greater than 2 weeks Type of Tube: gastrostomy Use of Tube: medications and feeding Insertion Site Prior to Procedure: clean Anesthesia Used: other anesthetic (Urojet) [place] Tube Size (F): 16 Balloon Size (mls): 4 Verification of Placement: KUB Tube Secured by: G-tube attachment device Patient Tolerated Procedure: well Complications: local bleeding <Pedro Luis Phillips - Last Filed: 12/04/20 16:31> - Procedures Initial comment: 4-[place]izen [place] cough less trach tube placed by Dr. Coker. (Pedro Luis Phillips) Medical Decision Making <Felipe Coker - Last Filed: 12/04/20 15:58> <Pedro Luis Phillips - Last Filed: 12/04/20 16:31> - Medical Decision Making Patient reevaluated and reexamined by myself, Dr. Coker. I agree with the findings. This includes diagnostic interpretation and treatment plan. Patient did have replacement of trach tube and PEG tube without any difficulty. Both done by myself. (Felipe Coker) Old records reviewed and respiratory therapy contacted to replace tracheostomy. Cathylodgchrissie called and nurse is stating 4-[place]izen [place] was what was in but unknown what size PEG tube. 4-[place] cuffless tracheostomy tube replaced by Dr. Coker. A ttempted to place PEG tube with a 20-[place] which was unsuccessful, 16-[place] PEG tube was placed with use of a Urojet. abdominal x-ray shows PEG tube in the stomach. Patient was discharged back to the [facility] for continuation of care. (Pedro Luis Phillips) Disposition <Felipe Coker - Last Filed: 12/04/20 15:58> Is patient prescribed a controlled substance at d/c from ED?: No Time of Disposition: 16:19 <Riske,Pedro Luis - Last Filed: 12/04/20 16:31> Clinical Impression: Tracheostomy care Disposition: HOME SELF-CARE Condition: Good Instructions (If sedation given, give patient instructions): PEG Tube Insertion (DC) Additional Instructions: Return if any worsening symptoms or problems. Referrals: David Tucker MD [Primary Care Provider] - 1-2 days
--- NOTE | 2020-12-04 16:14 | XR ---
EXAM: Abdomen radiograph. HISTORY: PEG tube placement. TECHNIQUE: Supine AP view. COMPARISON: None available. FINDINGS: There is demonstration of a PEG tube with tip in the stomach, confirmed by contrast opacification arash k to injection. There are nondilated bowel loops with a nonobstructive pattern. There are no pathologic calcification s. No acute osseous abnormality seen. IMPRESSION: PEG tube with tip in the stomach.
[2020-12-04 16:37] VITALS: BP 128/70; PULSE 71; RESP 16
== END 2020-12-04 17:31 | disposition home or self-care (01) ==
LOC: EC 13:57
DX: Z43.0 Encounter for attention to tracheostomy (principal); I10 Essential (primary) hypertension; F41.9 Anxiety disorder, unspecified; Z79.899 Other long term (current) drug therapy; Z87.891 Personal history of nicotine dependence; Z85.038 Personal history of other malignant neoplasm of large intestine
CPT/HCPCS: 43762; 74018; 99283

== ENCOUNTER 2020-12-05 02:37 | Emergency (ER) | payer MEDICARE ==
--- NOTE | 2020-12-05 02:43 | ED ---
Recheck HPI - General Stated Complaint: PEG tube issue Time Seen by Provider: 12/05/20 02:39 Source: RN notes reviewed, old records reviewed Mode of arrival: EMS Limitations: no limitations - History of Present Illness Initial Comments: This is a 80-year-old female today. She presents today for evaluation of recheck, recheck of both PEG tube placement and tracheostomy tube placement. Patient has no other complaints, mildly altered but at baseline. Patient has no complaints MD Complaint: other (Encounter for PEG tube and trachea tube replacement) -: minutes(s) Returns Today for: other (Tube replacement) Symptoms Since Prior Visit: no new symptoms Associated Symptoms: none Treatments Prior to Arrival: other (none) - Related Data Home Medications Medication Instructions Recorded Confirmed Metoprolol Succinate (ER) [Toprol 50 mg PEG/G-TUBE DAILY 06/12/20 12/04/20 XL] busPIRone HCl [Buspar] 10 mg PEG/G-TUBE TID@0500,1300,2100 06/12/20 12/04/20 HYDROcodone/APAP [[place] Elixir 15 ml PEG/G-TUBE Q4H PRN 07/07/20 12/04/20 7.5-325Mg/15Ml] Acetaminophen [Acetaminophen Oral 650 mg PEG/G-TUBE Q6H PRN 12/04/20 12/04/20 Soln] Albuterol Nebulized [Ventolin 2.5 mg INHALATION RT-QID PRN 12/04/20 12/04/20 Nebulized] Atorvastatin [Lipitor] 40 mg PEG/G-TUBE HS 12/04/20 12/04/20 Ferrous Sulfate Oral Elixir 300 mg PEG/G-TUBE BID 12/04/20 12/04/20 [Feosol Liquid] Lidocaine Viscous 2% [Xylocaine 15 ml PO ACHS@07,11,16,20 12/04/20 12/04/20 Viscous] Melatonin 3 mg PEG/G-TUBE HS 12/04/20 12/04/20 Multivitamins, Thera Liquid 5 ml PEG/G-TUBE HS 12/04/20 12/04/20 [Theragran Liquid (formulary)] OLANZapine ODT [ZyPREXA ZYDIS] 5 mg PEG/G-TUBE HS 12/04/20 12/04/20 amLODIPine [Norvasc] 5 mg PEG/G-TUBE DAILY 12/04/20 12/04/20 fentaNYL 25MCG/HR PATCH [Duragesic 1 patch TRANSDERM Q72H 12/04/20 12/04/20 25MCG/HR] Allergies Allergy/AdvReac Type Severity Reaction Status Date / Time morphine Allergy Unknown Verified 12/04/20 15:00 trazodone Allergy Unknown Verified 12/04/20 15:00 Review of Systems ROS Statement: Those systems with pertinent positive or pertinent negative responses have been documented in the HPI. ROS Other: All systems not noted in ROS Statement are negative. Past Medical History Past Medical History: Cancer, Hypertension Additional Past Medical History / Comment(s): Heart Ablation (10 years). Throat CA. History of Any Multi-Drug Resistant Organisms: None Reported Past Surgical History: Ablation, Hysterectomy Additional Past Surgical History / Comment(s): Partial colectomy (2001) for colon cancer per patient Past Psychological History: Anxiety Smoking Status: Former smoker Past Alcohol Use History: None Reported Past Drug Use History: None Reported General Exam General appearance: alert, in no apparent distress Head exam: Present: atraumatic, normocephalic, normal inspection Eye exam: Present: normal appearance, PERRL, EOMI. Absent: scleral icterus, conjunctival injection, periorbital swelling ENT exam: Present: normal exam, mucous membranes moist Neck exam: Present: normal inspection. Absent: tenderness, meningismus, lymphadenopathy Respiratory exam: Present: normal lung sounds bilaterally. Absent: respiratory distress, wheezes, rales, rhonchi, stridor Cardiovascular Exam: Present: regular rate, normal rhythm, normal heart sounds. Absent: systolic murmur, diastolic murmur, rubs, gallop, clicks GI/Abdominal exam: Present: soft, normal bowel sounds. Absent: distended, tenderness, guarding, rebound, rigid Extremities exam: Present: normal inspection, full ROM, normal capillary refill. Absent: tenderness, pedal edema, joint swelling, calf tenderness Back exam: Present: normal inspection Neurological exam: Present: alert, oriented X3, CN II-XII intact Psychiatric exam: Present: normal affect, normal mood Skin exam: Present: warm, dry, intact, normal color. Absent: rash Course Vital Signs 12/05/20 02:38 Temperature 98.2 F Pulse Rate 88 Respiratory 18 Rate Blood Pressure 154/82 O2 Sat by Pulse 96 Oximetry - Reevaluation(s) Reevaluation #1: 12/05/20 03:19 Medical record is reviewed Reevaluation #2: 12/05/20 03:20 I did replace spoke patient's PEG tube and tracheostomy to Procedures - Feeding Tube Replacement Reason for Replacement: fell out, patient removed/pulled out Initial Tube Inserted: greater than 2 weeks Type of Tube: gastrostomy Use of Tube: medications only, medications and feeding Tube Used for Reinsertion: other (New tube) Tube Secured by: other (Alone) Patient Tolerated Procedure: well Medical Decision Making - Medical Decision Making 80 female to the ER for evaluation, patient will have both her tracheostomy and PEG tube replaced here in the ER. I did replace both of these myself. Patient can be discharged home in no distress Disposition Clinical Impression: Tracheostomy complication, PEG tube malfunction Narrative: Both PEG and Tracheostomy tube were removed and are replaced Disposition: HOME SELF-CARE Condition: Good Instructions (If sedation given, give patient instructions): Tracheostomy Care (ED), PEG Tube Insertion (DC) Is patient prescribed a controlled substance at d/c from ED?: No Referrals: David Tucker MD [Primary Care Provider] - 1-2 days
[2020-12-05 02:46] VITALS: BP 154/82; PULSE 88; RESP 18; TEMP 98.2
== END 2020-12-05 03:28 | disposition home or self-care (01) ==
LOC: EC 02:37
DX: K94.23 Gastrostomy malfunction (principal); J95.00 Unspecified tracheostomy complication; I10 Essential (primary) hypertension; F41.9 Anxiety disorder, unspecified; Z87.891 Personal history of nicotine dependence; Z79.899 Other long term (current) drug therapy; Z85.038 Personal history of other malignant neoplasm of large intestine
CPT/HCPCS: 43762; 99284

== ENCOUNTER 2020-12-13 01:43 | Emergency (ER) | payer MEDICARE ==
--- NOTE | 2020-12-13 01:49 | ED ---
Recheck HPI - General Stated Complaint: Trach issue Time Seen by Provider: 12/13/20 01:48 Source: RN notes reviewed, old records reviewed Mode of arrival: EMS Limitations: no limitations - History of Present Illness Initial Comments: This is a 80-year-old female DF for evaluation today. Patient did pull her tracheostomy tube prior to arrival was sent in for evaluation. Patient was not sent with the tube that she removed. Patient has no complaints no respiratory distress no pain MD Complaint: other (Tracheostomy tube removal) -: hour(s) Returns Today for: other (Trach tube removal) Symptoms Since Prior Visit: no new symptoms Associated Symptoms: none Treatments Prior to Arrival: other (none) - Related Data Home Medications Medication Instructions Recorded Confirmed Metoprolol Succinate (ER) [Toprol 50 mg PEG/G-TUBE DAILY 06/12/20 12/04/20 XL] busPIRone HCl [Buspar] 10 mg PEG/G-TUBE TID@0500,1300,2100 06/12/20 12/04/20 HYDROcodone/APAP [[place] Elixir 15 ml PEG/G-TUBE Q4H PRN 07/07/20 12/04/20 7.5-325Mg/15Ml] Acetaminophen [Acetaminophen Oral 650 mg PEG/G-TUBE Q6H PRN 12/04/20 12/04/20 Soln] Albuterol Nebulized [Ventolin 2.5 mg INHALATION RT-QID PRN 12/04/20 12/04/20 Nebulized] Atorvastatin [Lipitor] 40 mg PEG/G-TUBE HS 12/04/20 12/04/20 Ferrous Sulfate Oral Elixir 300 mg PEG/G-TUBE BID 12/04/20 12/04/20 [Feosol Liquid] Lidocaine Viscous 2% [Xylocaine 15 ml PO ACHS@07,11,16,20 12/04/20 12/04/20 Viscous] Melatonin 3 mg PEG/G-TUBE HS 12/04/20 12/04/20 Multivitamins, Thera Liquid 5 ml PEG/G-TUBE HS 12/04/20 12/04/20 [Theragran Liquid (formulary)] OLANZapine ODT [ZyPREXA ZYDIS] 5 mg PEG/G-TUBE HS 12/04/20 12/04/20 amLODIPine [Norvasc] 5 mg PEG/G-TUBE DAILY 12/04/20 12/04/20 fentaNYL 25MCG/HR PATCH [Duragesic 1 patch TRANSDERM Q72H 12/04/20 12/04/20 25MCG/HR] Allergies Allergy/AdvReac Type Severity Reaction Status Date / Time morphine Allergy Unknown Verified 12/13/20 01:52 trazodone Allergy Unknown Verified 12/13/20 01:52 Review of Systems ROS Statement: Those systems with pertinent positive or pertinent negative responses have been documented in the HPI. ROS Other: All systems not noted in ROS Statement are negative. Past Medical History Past Medical History: Cancer, Hypertension Additional Past Medical History / Comment(s): Heart Ablation (10 years). Throat CA. History of Any Multi-Drug Resistant Organisms: None Reported Past Surgical History: Ablation, Hysterectomy Additional Past Surgical History / Comment(s): Partial colectomy (2001) for colon cancer per patient Past Psychological History: Anxiety Smoking Status: Former smoker Past Alcohol Use History: None Reported Past Drug Use History: None Reported General Exam General appearance: alert, in no apparent distress Head exam: Present: atraumatic, normocephalic, normal inspection Eye exam: Present: normal appearance, PERRL, EOMI. Absent: scleral icterus, conjunctival injection, periorbital swelling ENT exam: Present: normal exam, mucous membranes moist Neck exam: Present: normal inspection. Absent: tenderness, meningismus, lymphadenopathy Respiratory exam: Present: normal lung sounds bilaterally. Absent: respiratory distress, wheezes, rales, rhonchi, stridor Cardiovascular Exam: Present: regular rate, normal rhythm, normal heart sounds. Absent: systolic murmur, diastolic murmur, rubs, gallop, clicks GI/Abdominal exam: Present: soft, normal bowel sounds. Absent: distended, tenderness, guarding, rebound, rigid Extremities exam: Present: normal inspection, full ROM, normal capillary refill. Absent: tenderness, pedal edema, joint swelling, calf tenderness Back exam: Present: normal inspection Neurological exam: Present: alert, oriented X3, CN II-XII intact Psychiatric exam: Present: normal affect, normal mood Skin exam: Present: warm, dry, intact, normal color. Absent: rash Course Vital Signs 12/13/20 12/13/20 12/13/20 01:48 02:13 03:15 Temperature 98.9 F 98.9 F Pulse Rate 77 98 98 Respiratory 18 20 20 Rate Blood Pressure 114/72 155/90 O2 Sat by Pulse 94 L 94 L 95 Oximetry - Reevaluation(s) Reevaluation #1: 12/13/20 05:55 Medical record is reviewed Reevaluation #2: 12/13/20 05:56 Patient's trach tube is replaced without difficulty Procedures - Procedures Initial comment: Tracheostomy tube replacement Same size tube is obtained Tube is replaced without difficulty Medical Decision Making - Medical Decision Making 40 female to the ER, patient does have tracheostomy tube accidental removed, we have replaced here in the ER and she can be discharged Disposition Clinical Impression: Tracheostomy care, Tracheostomy complication Disposition: HOME SELF-CARE Condition: Good Instructions (If sedation given, give patient instructions): Tracheostomy Care (ED) Is patient prescribed a controlled substance at d/c from ED?: No Referrals: David Tucker MD [Primary Care Provider] - 1-2 days
[2020-12-13 01:53] VITALS: TEMP 98.9
[2020-12-13 02:14] VITALS: PULSE 98; RESP 20
[2020-12-13 04:44] VITALS: BP 155/90
== END 2020-12-13 03:15 | disposition home or self-care (01) ==
LOC: EC 01:43
DX: J95.00 Unspecified tracheostomy complication (principal); I10 Essential (primary) hypertension; F41.9 Anxiety disorder, unspecified; Z79.51 Long term (current) use of inhaled steroids; Z79.899 Other long term (current) drug therapy; Z87.891 Personal history of nicotine dependence; Z85.038 Personal history of other malignant neoplasm of large intestine
CPT/HCPCS: 31502; 99284

== ENCOUNTER 2021-01-04 05:17 | Emergency (ER) | payer MEDICARE ==
[2021-01-04 05:34] VITALS: TEMP 98
--- NOTE | 2021-01-04 05:34 | ED ---
Altered Mental Status HPI - General Stated Complaint: Fall Time Seen by Provider: 01/04/21 05:21 Source: RN notes reviewed, old records reviewed Limitations: altered mental status, physical limitation - History of Present Illness Initial Comments: This is a 80-year-old female to the emergency room today. Patient presents with poor strain, fall was mechanical slip and no other injuries or no real specific injuries are noted in the first place. No blood thinners. Patient suffers no current complaints MD Complaint: altered mental status, weakness -: hour(s) Severity: mild Consistency of Symptoms: waxing and waning Context: history of similar presentation Associated Symptoms: weakness, difficulty walking - Related Data Home Medications Medication Instructions Recorded Confirmed Metoprolol Succinate (ER) [Toprol 50 mg PEG/G-TUBE DAILY 06/12/20 12/04/20 XL] busPIRone HCl [Buspar] 10 mg PEG/G-TUBE TID@0500,1300,2100 06/12/20 12/04/20 HYDROcodone/APAP [[place] Elixir 15 ml PEG/G-TUBE Q4H PRN 07/07/20 12/04/20 7.5-325Mg/15Ml] Acetaminophen [Acetaminophen Oral 650 mg PEG/G-TUBE Q6H PRN 12/04/20 12/04/20 Soln] Albuterol Nebulized [Ventolin 2.5 mg INHALATION RT-QID PRN 12/04/20 12/04/20 Nebulized] Atorvastatin [Lipitor] 40 mg PEG/G-TUBE HS 12/04/20 12/04/20 Ferrous Sulfate Oral Elixir 300 mg PEG/G-TUBE BID 12/04/20 12/04/20 [Feosol Liquid] Lidocaine Viscous 2% [Xylocaine 15 ml PO ACHS@07,11,16,20 12/04/20 12/04/20 Viscous] Melatonin 3 mg PEG/G-TUBE HS 12/04/20 12/04/20 Multivitamins, Thera Liquid 5 ml PEG/G-TUBE HS 12/04/20 12/04/20 [Theragran Liquid (formulary)] OLANZapine ODT [ZyPREXA ZYDIS] 5 mg PEG/G-TUBE HS 12/04/20 12/04/20 amLODIPine [Norvasc] 5 mg PEG/G-TUBE DAILY 12/04/20 12/04/20 fentaNYL 25MCG/HR PATCH [Duragesic 1 patch TRANSDERM Q72H 12/04/20 12/04/20 25MCG/HR] Allergies Allergy/AdvReac Type Severity Reaction Status Date / Time morphine Allergy Unknown Verified 12/13/20 01:52 trazodone Allergy Unknown Verified 12/13/20 01:52 Review of Systems ROS Statement: Those systems with pertinent positive or pertinent negative responses have been documented in the HPI. ROS Other: All systems not noted in ROS Statement are negative. Past Medical History Past Medical History: Cancer, Hypertension Additional Past Medical History / Comment(s): Heart Ablation (10 years). Throat CA. History of Any Multi-Drug Resistant Organisms: None Reported Past Surgical History: Ablation, Hysterectomy Additional Past Surgical History / Comment(s): Partial colectomy (2001) for colon cancer per patient Past Psychological History: Anxiety Smoking Status: Former smoker Past Alcohol Use History: None Reported Past Drug Use History: None Reported General Exam General appearance: alert, in no apparent distress Head exam: Present: atraumatic, normocephalic, normal inspection Eye exam: Present: normal appearance, PERRL, EOMI. Absent: scleral icterus, conjunctival injection, periorbital swelling ENT exam: Present: normal exam, mucous membranes moist Neck exam: Present: normal inspection. Absent: tenderness, meningismus, lymphadenopathy Respiratory exam: Present: normal lung sounds bilaterally. Absent: respiratory distress, wheezes, rales, rhonchi, stridor Cardiovascular Exam: Present: regular rate, normal rhythm, normal heart sounds. Absent: systolic murmur, diastolic murmur, rubs, gallop, clicks GI/Abdominal exam: Present: soft, normal bowel sounds. Absent: distended, te nderness, guarding, rebound, rigid Extremities exam: Present: normal inspection, full ROM, normal capillary refill. Absent: tenderness, pedal edema, joint swelling, calf tenderness Back exam: Present: normal inspection Neurological exam: Present: alert, oriented X3, CN II-XII intact Psychiatric exam: Present: normal affect, normal mood Skin exam: Present: warm, dry, intact, normal color. Absent: rash Course Vital Signs 01/04/21 01/04/21 01/04/21 05:31 05:46 06:00 Temperature 98 F Pulse Rate 91 90 92 Respiratory 18 22 22 Rate Blood Pressure 109/65 107/75 102/67 O2 Sat by Pulse 100 100 99 Oximetry - Reevaluation(s) Reevaluation #1: Medical record is reviewed Patient symptoms improved here in the ER Patient informed results and questions answered Patient is in no acute distress Medical Decision Making - Medical Decision Making 80 female for mechanical trip and fall no specific injuries are noted. Patient symptoms are without significant difficulty and she can be discharged - EKG Data -: EKG Interpreted by Me (EKG shows sinus rhythm 91 WA 184 QRS 76 QTC 452) - Radiology Data Radiology results: report reviewed (CT brain C-spine is negative for acute disease), image reviewed Disposition Clinical Impression: Fall, Altered mental state Disposition: HOME SELF-CARE Condition: Fair Instructions (If sedation given, give patient instructions): Fall Prevention for Older Adults (ED) Is patient prescribed a controlled substance at d/c from ED?: No Referrals: David Tucker MD [Primary Care Provider] - 1-2 days
[2021-01-04 05:47] VITALS: RESP 22
[2021-01-04 06:03] VITALS: BP 102/67; PULSE 92
--- NOTE | 2021-01-04 06:20 | CT ---
EXAMINATION TYPE: CT brain jenny pat DATE OF EXAM: 01/04/2021 COMPARISON: None HISTORY: fall/head injury CT DLP: 1248.7 mGycm Automated exposure control for dose reduction was used. There is cerebral cortical atrophy. There is no mass effect nor midline shift. There is no sign of in tracranial hemorrhage. The calvarium is intact. Skull base is intact. There is normal aeration of the mastoid sinuses. There is anterior subluxation of C4 in relation to C5 of a few millimeters. There is narrowing of C5- 6 and C6-7 disc spaces with spur formation. Facet joints are intact. There is multilevel hypertrophic facet arthropathy. IMPRESSION: Cerebral atrophy. No acute intracranial abnormality. 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 No cervical spine fracture.
== END 2021-01-04 08:26 | disposition home or self-care (01) ==
LOC: EC 05:17
DX: R41.82 Altered mental status, unspecified (principal); R53.1 Weakness; R26.2 Difficulty in walking, not elsewhere classified; I10 Essential (primary) hypertension; F41.9 Anxiety disorder, unspecified; Z79.899 Other long term (current) drug therapy; Z85.038 Personal history of other malignant neoplasm of large intestine; Z87.891 Personal history of nicotine dependence; W01.0XXA Fall on same level from slipping, tripping and stumbling without subsequent striking against object, initial encounter
CPT/HCPCS: 70450; 72125; 93005; 99285